=== PATIENT | male | born 1960 | race Caucasian/White ===

== ENCOUNTER 2020-11-07 12:42 | Inpatient (IN) | payer MEDICARE, MEDICAID, SELFPAY ==
--- NOTE | ~2020-11-07 | XR_ITS ---
EXAMINATION: LUMBAR SPINE AND RIGHT HIP CLINICAL INFORMATION: Question of osteomyelitis COMPARISON: None TECHNIQUE: 3 views lumbar spine, single view pelvis with 2 additional views right hip. FINDINGS: Right hip: The distal end of the nephroureteral catheter on the left is present. Some mild degenerative changes are present in the right hip with some supra-acetabular sclerosis and some osteophytes. No bony destructive lesion is seen to suggest osteomyelitis. Lumbar spine: Degenerative changes are present in the lumbar spine with large osteophytes at L1 and L2 and lesser spondylitic changes at L3-S1. There is a scoliosis convex to the right. No gross bony destructive lesions are seen to suggest osteomyelitis. The vas deferens are calcified. XR/XR lumbar spine 2-3V IMPRESSION: Degenerative changes in the right hip and spine. Would highly recommend MRI if osteomyelitis is a consideration. Left-sided nephroureteral catheter incidentally noted.
--- NOTE | ~2020-11-07 | US_ITS ---
EXAMINATION: US RETROPERITONEAL LIMITED (RENAL ONLY) CLINICAL INFORMATION: Acute kidney insufficiency. History of left renal obstruction and stent.. COMPARISON: Lumbar spine films dated 11/07/2020. TECHNIQUE: Ultrasound of the kidneys was performed. FINDINGS: RIGHT KIDNEY: 12.1 x 7.0 x 6.7 cm (SAG x AP x TRV). The kidney is normal in size and contour and mildly increased in echogenicity, suggesting medical renal disease. Renal cortical thickness is normal. No calculi or focal parenchymal lesions. No hydronephrosis. Trace amount of free fluid is seen along the anterior lower pole and interpolar region. LEFT KIDNEY: 11.8 x 5.3 x 6.7 cm (SAG x AP x TRV). The kidney is normal in size and contour and mildly increased in echogenicity, suggesting medical renal disease. Renal cortical thickness is normal. No calculi or focal parenchymal lesions. No hydronephrosis. Trace amount of perinephric fluid is seen in the anterior lower pole region. OTHER: Incidentally noted is an enlarged spleen, measuring 18.9 cm longitudinally. US/US renal BI IMPRESSION: 1. Increased renal cortical echogenicity seen bilaterally, suggesting medical renal disease. 2. No hydronephrosis. 3. Trace bilateral perinephric fluid. 4. Incidental finding of splenomegaly.
--- NOTE | ~2020-11-07 | NM_ITS ---
EXAMINATION: NUCLEAR MEDICINE 3 PHASE BONE SCAN CLINICAL INFORMATION: Left hip and lower lumbar spine pain. Very low GFR unable to perform MRI. COMPARISON: Lumbar spine and right hip exam 11/07/2020 TECHNIQUE: Following intravenous administration of 28 mCi of 99m technetium MDP, a three-phase bone scan of lumbar spine and pelvis was obtained. Blood pool imaging to the lumbar spine left hip were obtained as well. In addition delayed images images were obtained of the pelvis and whole body. FINDINGS: On first phase bone scan there is no abnormal increased perfusion seen to left hip or the lumbar spine. On blood pool images there is no abnormal activity seen in the lumbar spine or the left hip. On third phase bone scan there is mild increased activity seen in the left hip joint and proximal femur. There is focal increased activity seen in right lower thoracic facet joints from T8 through T12 vertebra and left L1-2, bilateral L5-S1 and L4-L5 facet joints. There is no intense activity seen in the lumbar spine to suspect any osteomyelitis. The right hip appears unremarkable. There is mild focal activity in the left knee joint and right midtarsal joints likely arthritic changes. NM/NM bone 3 phase IMPRESSION: Normal first phase and blood pool imaging of lumbar spine and left hip. Normal three-phase bone scan right hip. Abnormal 3 third phase bone scan left hip. This could be secondary to osteoarthritis or or inflammatory arthritis. Mild arthritic changes left knee joint and midtarsal joint right foot. Mild activity in the left proximal femur could be from underlying fracture or contusion. No gross bony abnormality seen on the pelvic x-ray from 11/07/2020.
--- NOTE | ~2020-11-07 | XR_ITS ---
EXAMINATION: LUMBAR SPINE AND RIGHT HIP CLINICAL INFORMATION: Question of osteomyelitis COMPARISON: None TECHNIQUE: 3 views lumbar spine, single view pelvis with 2 additional views right hip. FINDINGS: Right hip: The distal end of the nephroureteral catheter on the left is present. Some mild degenerative changes are present in the right hip with some supra-acetabular sclerosis and some osteophytes. No bony destructive lesion is seen to suggest osteomyelitis. Lumbar spine: Degenerative changes are present in the lumbar spine with large osteophytes at L1 and L2 and lesser spondylitic changes at L3-S1. There is a scoliosis convex to the right. No gross bony destructive lesions are seen to suggest osteomyelitis. The vas deferens are calcified. XR/XR hip RT w PEL1V IMPRESSION: Degenerative changes in the right hip and spine. Would highly recommend MRI if osteomyelitis is a consideration. Left-sided nephroureteral catheter incidentally noted.
[2020-11-07 13:04] VITALS: BP 140/75; PULSE 72; RESP 18; TEMP 36.6; O2SAT 100; BMI 26.6
--- NOTE | 2020-11-07 16:22 | ED.GENADULT ---
HPI - General Adult General Chief complaint: Recheck/Abnormal Lab/Rx Stated complaint: ABN LABS,R FLANK PAIN PER REHAB Time Seen by Provider: 11/07/20 13:50 Source: patient Mode of arrival: ambulatory History of Present Illness HPI narrative: 60-year-old male with a past medical history of ERIS, bacteremia, cirrhosis, DM, osteomyelitis of L1-L5, pyelonephritis, sepsis, and urinary obstruction, BIBA from [facility] c/o continued low back pain radiating to right hip/thigh since osteomyelitis diagnosis x 6 weeks. Per facility has been persistently refusing care/to participate in rehab and his lactulose, thus arrangements were made for patient to go to SNF today which he refused and was transferred to hospital. Patient adamantly requesting MRI. Denies fever, chills, numbness, tingling, urinary incontinence/retention, abdominal pain, CP/SOB Patient with extensive hospitalization from August 21 to October 17 at [facility] then [facility] then [facility] for severe sepsis with pyelonephritis and urinary obstruction requiring HD and percutaneous nephrostomy tube, then developed secondary bacteremia. MRI of the spine on September 21 showed osteomyelitis and diskitis with epidural and paraspinal phlegmon at L1, L2, L4 and L5, patient was transferred [facility] for neurosurgical evaluation who deemed no surgical intervention needed. Subsequently patient was transferred to [facility], then later to [facility] for rehab & finished IV Ceftriaxone and Ampicillin on November 04 for osteomyelitis tx. Onset (ago): week(s) Related Data Home Medications Medication Instructions Recorded Confirmed B complex with C 20-folic acid 1 cap PO DAILY 11/07/20 11/07/20 [Nephrocaps] Saccharomyces boulardii [Florastor] 1 cap PO BID 11/07/20 11/07/20 acetaminophen 650 mg PO Q6H PRN 11/07/20 11/07/20 carvedilol 1 tab PO BID 11/07/20 11/07/20 folic acid 1 tab PO DAILY 11/07/20 11/07/20 furosemide 1 tab PO DAILY 11/07/20 11/07/20 gabapentin 300 mg PO BEDTIME 11/07/20 11/07/20 heparin (porcine) 5,000 unit SUBCUT Q12H 11/07/20 11/07/20 insulin glargine [Lantus Solostar 15 unit SUBCUT BEDTIME 11/07/20 11/07/20 U-100 Insulin] insulin lispro 0 unit SUBCUT QIDACHS 11/07/20 11/07/20 lactulose 30 g PO QID 11/07/20 11/07/20 lidocaine [Lidoderm] 1 patch TOPICAL DAILY 11/07/20 11/07/20 melatonin 1 tab PO BEDTIME PRN 11/07/20 11/07/20 morphine 7.5 mg PO Q4H PRN 11/07/20 11/07/20 morphine 15 mg PO Q4H PRN 11/07/20 11/07/20 pyridoxine (vitamin B6) 50 mg PO DAILY 11/07/20 11/07/20 rifaximin 550 mg PO BID 11/07/20 11/07/20 sodium bicarbonate 1 tab PO BID 11/07/20 11/07/20 thiamine mononitrate (vit B1) 2 tab PO DAILY 11/07/20 11/07/20 [Vitamin B-1 (mononitrate)] tizanidine 8 mg PO Q8H 11/07/20 11/07/20 trazodone 50 mg PO BEDTIME 11/07/20 11/07/20 Allergies Allergy/AdvReac Type Severity Reaction Status Date / Time tree nut Allergy Dry Mucus Verified 11/07/20 13:12 Membranes Review of Systems Review of Systems: Constitutional: No Fever, No Chills, No Night Sweats Cardiovascular: No Chest Pain, No SOB Respiratory: No Cough, No Dyspnea Gastrointestinal: No Nausea, No Vomiting, No Diarrhea, No Constipation, No Abdominal pain Genitourinary: No Dysuria, No Hematuria, No Urinary Incontinence, No Flank Pain, No Urinary Flow Changes Musculoskeletal: + joint pain, + Myalgias, No Joint Swelling Skin: No Skin Lesions, No rash Neuro: No Weakness, No Numbness, No Paresthesias Yes all other systems are reviewed and are negative [facility] Past Medical History Attestation statement: The following information was validated with the patient. Medical History (Updated 11/07/20 @ 13:10 by Sheela Peterson) ERIS (acute kidney injury) Bacteremia Cirrhosis of liver Diabetes Osteomyelitis Pyelonephritis Sepsis Urinary obstruction Surgical History (Updated 11/07/20 @ 13:11 by Sheela Peterson) S/P TIPS (transjugular intrahepatic portosystemic shunt) Social History Social History Alcohol intake: unknown Smoking Status: Unknown if ever smoked Use of substances other than those prescribed or required for medical reasons: Unknown Advance Directives: Yes Advance Directives Information Provided: No Advance Directives on File: Yes Advance Directives Date on File: 11/07/20 Physical Exam Vital Signs: Vital Signs: Last Vital Signs Temp 97.8 F 11/07/20 13:04 Pulse 72 11/07/20 13:04 Resp 18 11/07/20 13:04 BP 140/75 H 11/07/20 13:04 Pulse Ox 100 11/07/20 13:04 Body Mass Index 26.6 Const: General: cooperative and comfortable Orientation/consciousness: patient oriented x3 Limitations: no limitations HENMT: Head: Yes normal to inspection Ears: hearing grossly normal bilaterally General nose exam: Normal external nose present Face and sinus: Yes normal facial exam Eyes: General: appearance normal, both eyes and all related structures EOM: EOMs intact bilaterally Neck: Neck: Yes normal visual inspection Resp: Effort & Inspection: normal respiratory effort Auscultation: clear to auscultation bilaterally Cardio: Rate: regular rate Heart sounds: S1 normal heart sound present and S2 normal heart sound present Peripheral pulses: dorsalis pedis present GI: Inspection: Yes normal to inspection Palpation (GI): Soft to palpation, nontender, no guarding and not rigid : Other: Nephrostomy tube present to left flank General: Yes no CVA tenderness Back/Spine/Pelvis: Other: No midline spinous tenderness or step-offs/deformity/cellulitis present Back: no CVA tenderness Skin: Rashes: no rashes Wounds: no wounds Neuro: Other: Chronic RLE weakness secondary to polio as a child General: patient oriented x3, tone normal, moves all extremities and no focal motor deficits Extrem: General: Yes normal to inspection Course Course Course Narrative: -H&H at patient's baseline -ESR elevated at 107, CRP elevated at 5 (per notes CRP was 26.1 upon discharge from [facility]) -BUN/creatinine 87/4.57 today (87/4.34 on 11/05), ammonia 105 worsening from 91 on 11/03 > likely from patients noncompliance /refusal to take lactulose > no evidence of hepatic encephalopathy at this time he is A&O x3, mentating appropriately. Agreeable to take lactulose now in the ED >> per notes from [facility] patient was complaining of right hip pain and this being a component of osteo since hospital stay, was not believed to be active infection. Unlikely active/new osteomyelitis as patient just finished course of IV antibiotics. Has no elevated WBC count, afebrile, ESR/CRP improving. XR hip RT w PEL1V IMPRESSION: Degenerative changes in the right hip and spine. Would highly recommend MRI if osteomyelitis is a consideration. Left-sided nephroureteral catheter incidentally noted. >> still low concern for acute osteomyelitis but due to radiologist recommendation will obtain MRI to rule out osteo -2100--ED care transferred to [facility] pending MRI, PT evaluation, and likely STR tomorrow Medical Decision Making MDM Narrative Medical decision making narrative: 60-year-old male with a past medical history of ERIS, bacteremia, cirrhosis, DM, osteomyelitis of L1-L5, pyelonephritis, sepsis, and urinary obstruction, BIBA from [facility] c/o continued low back pain radiating to right hip/thigh since osteomyelitis diagnosis x 6 weeks. On exam VSS, NAD/well-appearing, physical exam as above. Likely acute on chronic pain from prior osteomyelitis. R/o metabolic/infectious etiology including encephalopathy due to patient's noncompliance with lactulose. Patient just finished treatment for osteomyelitis, although there is ?concern infection spread, will 1st check labs Low concern for severe sepsis Plan: Labs Lab Data Result diagrams: 11/07/20 16:59 11/07/20 16:59 Labs: Lab Results 11/07/20 11/07/20 11/07/20 Range/Units 16:58 16:59 16:59 WBC 4.8 (4.8-10.8) X10*3/uL RBC 2.66 L (4.60-5.80) X10*6/uL Hgb 8.3 L (14.0-18.0) g/dl Hct 23.5 L (42-52) % MCV 88.3 (80-98) fL MCH 31.2 (27.0-33.0) pg MCHC 35.3 (31.0-36.0) g/dl RDW 14.6 (11.0-16.0) % Plt Count 149 L (160-400) X10*3/uL MPV 8.6 L (9.4-12.4) fL Immature Gran % (Auto) 0.6 H (0.0-0.4) % Neut % (Auto) 76.4 H (45-73) % Lymph % (Auto) 9.5 L (20-40) % Ceiba % (Auto) 9.1 (2-11) % Eos % (Auto) 4.4 H (0-4) % Baso % (Auto) 0.0 (0-2) % Lymph # (Auto) 0.5 L (1.2-4.9) X10*3/uL Ceiba # (Auto) 0.4 (0.1-1.2) X10*3/uL Eos # (Auto) 0.2 (0.0-0.4) X10*3/uL Baso # (Auto) 0.0 (0.0-0.2) X10*3/uL Abs Immat Gran (auto) 0.03 (0.00-0.03) X10*3/uL Absolute Neuts (auto) 3.6 (2.0-8.3) X10*3/uL Absolute Nucleated RBC 0.000 (0.0-0.012) X10*3/uL Nucleated RBC % (auto) 0.0 (0.0-0.2) /100WBC Smear Tech's Comments VERIFIED ESR 107 H (0-15) MM/HR PT (10.8-13.0) SEC INR (0.9-1.1) APTT (24.1-38.0) SEC Sodium (135-145) mmol/L Potassium (3.3-5.1) mmol/L Chloride (96-108) mmol/L Carbon Dioxide (22-29) mmol/L Anion Gap (12-20) BUN (9-16) mg/dL Creatinine (0.5-1.4) mg/dL Estim Creat Clear Calc Estimated GFR Random Glucose (60-115) mg/dL Lactic Acid (0.5-2.0) mmol/L Calcium (8.4-10.2) mg/dL Magnesium (1.6-2.6) mg/dL Total Bilirubin (0.0-1.0) mg/dL Direct Bilirubin (0.0-0.5) mg/dL AST (5-37) U/L ALT (0-40) U/L Alkaline Phosphatase (39-117) U/L Ammonia (13-55) umol/L C-Reactive Protein (< or = 0.50) mg/dL Total Protein (6.5-8.0) g/dL Albumin (3.5-5.0) g/dL Lipase (8-78) U/L COVID-19 (STEFFANY) Negative (Negative) COVID-19 Clin Com See Note 11/07/20 11/07/20 11/07/20 Range/Units 16:59 16:59 16:59 WBC (4.8-10.8) X10*3/uL RBC (4.60-5.80) X10*6/uL Hgb (14.0-18.0) g/dl Hct (42-52) % MCV (80-98) fL MCH (27.0-33.0) pg MCHC (31.0-36.0) g/dl RDW (11.0-16.0) % Plt Count (160-400) X10*3/uL MPV (9.4-12.4) fL Immature Gran % (Auto) (0.0-0.4) % Neut % (Auto) (45-73) % Lymph % (Auto) (20-40) % Ceiba % (Auto) (2-11) % Eos % (Auto) (0-4) % Baso % (Auto) (0-2) % Lymph # (Auto) (1.2-4.9) X10*3/uL Ceiba # (Auto) (0.1-1.2) X10*3/uL Eos # (Auto) (0.0-0.4) X10*3/uL Baso # (Auto) (0.0-0.2) X10*3/uL Abs Immat Gran (auto) (0.00-0.03) X10*3/uL Absolute Neuts (auto) (2.0-8.3) X10*3/uL Absolute Nucleated RBC (0.0-0.012) X10*3/uL Nucleated RBC % (auto) (0.0-0.2) /100WBC Smear Tech's Comments ESR (0-15) MM/HR PT 13.6 H (10.8-13.0) SEC INR 1.1 (0.9-1.1) APTT 35.0 (24.1-38.0) SEC Sodium 133 L (135-145) mmol/L Potassium 4.0 (3.3-5.1) mmol/L Chloride 101 (96-108) mmol/L Carbon Dioxide 18 L (22-29) mmol/L Anion Gap 18 (12-20) BUN 87 H* (9-16) mg/dL Creatinine 4.57 H* (0.5-1.4) mg/dL Estim Creat Clear Calc 17.0 Estimated GFR 13 Random Glucose 119 H (60-115) mg/dL Lactic Acid (0.5-2.0) mmol/L Calcium 8.3 L (8.4-10.2) mg/dL Magnesium 2.1 (1.6-2.6) mg/dL Total Bilirubin 1.1 H (0.0-1.0) mg/dL Direct Bilirubin 0.5 (0.0-0.5) mg/dL AST 22 (5-37) U/L ALT 16 (0-40) U/L Alkaline Phosphatase 132 H (39-117) U/L Ammonia 105 H (13-55) umol/L C-Reactive Protein 5.00 H (< or = 0.50) mg/dL Total Protein 7.6 (6.5-8.0) g/dL Albumin 3.4 L (3.5-5.0) g/dL Lipase (8-78) U/L COVID-19 (STEFFANY) (Negative) COVID-19 Clin Com 11/07/20 11/07/20 Range/Units 16:59 16:59 WBC (4.8-10.8) X10*3/uL RBC (4.60-5.80) X10*6/uL Hgb (14.0-18.0) g/dl Hct (42-52) % MCV (80-98) fL MCH (27.0-33.0) pg MCHC (31.0-36.0) g/dl RDW (11.0-16.0) % Plt Count (160-400) X10*3/uL MPV (9.4-12.4) fL Immature Gran % (Auto) (0.0-0.4) % Neut % (Auto) (45-73) % Lymph % (Auto) (20-40) % Ceiba % (Auto) (2-11) % Eos % (Auto) (0-4) % Baso % (Auto) (0-2) % Lymph # (Auto) (1.2-4.9) X10*3/uL Ceiba # (Auto) (0.1-1.2) X10*3/uL Eos # (Auto) (0.0-0.4) X10*3/uL Baso # (Auto) (0.0-0.2) X10*3/uL Abs Immat Gran (auto) (0.00-0.03) X10*3/uL Absolute Neuts (auto) (2.0-8.3) X10*3/uL Absolute Nucleated RBC (0.0-0.012) X10*3/uL Nucleated RBC % (auto) (0.0-0.2) /100WBC Smear Tech's Comments ESR (0-15) MM/HR PT (10.8-13.0) SEC INR (0.9-1.1) APTT (24.1-38.0) SEC Sodium (135-145) mmol/L Potassium (3.3-5.1) mmol/L Chloride (96-108) mmol/L Carbon Dioxide (22-29) mmol/L Anion Gap (12-20) BUN (9-16) mg/dL Creatinine (0.5-1.4) mg/dL Estim Creat Clear Calc Estimated GFR Random Glucose (60-115) mg/dL Lactic Acid 0.6 (0.5-2.0) mmol/L Calcium (8.4-10.2) mg/dL Magnesium (1.6-2.6) mg/dL Total Bilirubin (0.0-1.0) mg/dL Direct Bilirubin (0.0-0.5) mg/dL AST (5-37) U/L ALT (0-40) U/L Alkaline Phosphatase (39-117) U/L Ammonia (13-55) umol/L C-Reactive Protein (< or = 0.50) mg/dL Total Protein (6.5-8.0) g/dL Albumin (3.5-5.0) g/dL Lipase 10 (8-78) U/L COVID-19 ([facility]FFANY) (Negative) COVID-19 Clin Com Discharge Plan Discharge Prescriptions: No Action furosemide 40 mg tablet 1 tab PO DAILY RF: 0 carvedilol 6.25 mg tablet 1 tab PO BID RF: 0 melatonin 3 mg tablet 1 tab PO BEDTIME PRN (Reason: Insomnia) RF: 0 sodium bicarbonate 650 mg tablet 1 tab PO BID RF: 0 folic acid 1 mg tablet 1 tab PO DAILY RF: 0 insulin lispro 100 unit/mL insulin pen 0 unit subcut QIDACHS RF: 0 Saccharomyces boulardii [Florastor] 250 mg capsule 1 cap PO BID RF: 0 lactulose 10 gram/15 mL solution 30 g PO QID RF: 0 Lantus Solostar U-100 Insulin 100 unit/mL (3 mL) insulin pen 15 unit subcut BEDTIME RF: 0 thiamine mononitrate (vit B1) [Vitamin B-1 (mononitrate)] 100 mg tablet 2 tab PO DAILY RF: 0 acetaminophen 325 mg Tablet 650 mg PO Q6H PRN (Reason: Pain) RF: 0 tizanidine 4 mg Tablet 8 mg PO Q8H RF: 0 lidocaine [Lidoderm] 5 % Adhesive Patch,Medicated 1 patch TOPICAL DAILY RF: 0 pyridoxine (vitamin B6) 50 mg Tablet 50 mg PO DAILY RF: 0 gabapentin 100 mg Capsule 300 mg PO BEDTIME RF: 0 heparin (porcine) 5,000 unit/mL Solution 5,000 unit SUBCUT Q12H RF: 0 rifaximin 550 mg Tablet 550 mg PO BID RF: 0 Nephrocaps 1 mg Capsule 1 cap PO DAILY RF: 0 trazodone 50 mg Tablet 50 mg PO BEDTIME RF: 0 morphine 15 mg Tablet 15 mg PO Q4H PRN (Reason: Pain (Scale Score 7-10)) RF: 0 morphine 15 mg Tablet 7.5 mg PO Q4H PRN (Reason: Pain (Scale Score 4-6)) RF: 0
[2020-11-07 17:20] LABS: Eosinophils Absolute Auto 0.2 X10*3/uL (0.0-0.4); Eosinophils Percent Auto 4.4 % (0-4); Hematocrit 23.5 % (42-52); Hemoglobin 8.3 g/dl (14.0-18.0); Imm Gran Abs Auto 0.03 X10*3/uL (0.00-0.03); Imm Gran Pct Auto 0.6 % (0.0-0.4); Lymphocytes Absolute Auto 0.5 X10*3/uL (1.2-4.9); Lymphocytes Percent Auto 9.5 % (20-40); MANUAL DIFF FLAG SCAN; Mean Corpuscular HGB Conc 35.3 g/dl (31.0-36.0); Mean Corpuscular Hemoglobin 31.2 pg (27.0-33.0); Mean Corpuscular Volume 88.3 fL (80-98); Mean Platelet Volume 8.6 fL (9.4-12.4); Monocytes Absolute Auto 0.4 X10*3/uL (0.1-1.2); Monocytes Percent Auto 9.1 % (2-11); Neutrophils Absolute Auto 3.6 X10*3/uL (2.0-8.3); Neutrophils Percent Auto 76.4 % (45-73); Platelet Count 149 X10*3/uL (160-400); Red Blood Count 2.66 X10*6/uL (4.60-5.80); Red Cell Distribution Width 14.6 % (11.0-16.0); SCAN SMEAR FLAG 1; White Blood Count 4.8 X10*3/uL (4.8-10.8)
[2020-11-07 17:24] LABS: INTERNATIONAL NORM RATIO 1.1 (0.9-1.1); Prothrombin Time 13.6 SEC (10.8-13.0)
[2020-11-07 17:47] LABS: COVID-19 Test Negative (Negative)
[2020-11-07 17:49] LABS: SLIDE REVIEW VERIFIED
[2020-11-07 18:00] LABS: Ammonia 105 umol/L (13-55)
[2020-11-07 18:04] LABS: Lactic Acid 0.6 mmol/L (0.5-2.0)
[2020-11-07 18:07] LABS: Lipase 10 U/L (8-78)
[2020-11-07 18:15] LABS: Alanine Aminotransferase 16 U/L (0-40); Albumin Level 3.4 g/dL (3.5-5.0); Alkaline Phosphatase 132 U/L (39-117); Anion Gap 18 (12-20); Aspartate Amino Transferase 22 U/L (5-37); Bilirubin Direct 0.5 mg/dL (0.0-0.5); Bilirubin Total 1.1 mg/dL (0.0-1.0); Blood Urea Nitrogen 87 mg/dL (9-16); Calcium 8.3 mg/dL (8.4-10.2); Carbon Dioxide 18 mmol/L (22-29); Chloride 101 mmol/L (96-108); Estimated Glomerular Filt Rate 13; Glucose Random 119 mg/dL (60-115); Magnesium 2.1 mg/dL (1.6-2.6); Sodium 133 mmol/L (135-145); Total Protein 7.6 g/dL (6.5-8.0)
[2020-11-07 18:26] LABS: Erythrocyte Sedimentation Rate 107 MM/HR (0-15)
[2020-11-07] MEDS: Lactulose 20 GM/30 ML SOLUTION PO (21:00)
--- NOTE | 2020-11-07 22:33 | MHC.CM.ED ---
met with pt and ex-, Ese Murillo, ([phone]). who is here for support, not to provide care for him. Pt lives in [facility] and was here on business. Living at [facility] in [place].Ese arrived her from out of [facility] for support. Pt had long recent medical hx with hospitalization from 08/21-10/17. Severe sepsis withpyelo, bacteremia and osteomyelitis in lumbar area. Completed antibiotics on 11/04. Also has hx of cirrhosis. Was at [facility] for acute rehab. Was d/c today to [facility] because we wasn't participating in rehab. Pt demanded to come to hospital for MRI instead of rehab. Has a bed at [facility]. Pt refuses to go to [facility]. May go to another SNF if his pain improves, but will not go to [place]. States people aren't listening to him. Will have MRI tomorrow of hip, spine and pelivs and a PT evaluation. Ese tells that when pt doesn't take his lactulose, his ammonia levels rise and he becomes confused. [facility] states his sibling will help him, but they live on the [facility]. Placed additional referrals locally in [facility], but did not cancel [place] yet in case he changes his mind. HCP obtained from [facility] on his on file at [facility]. HCP/Sister Elba Saba ([phone]). Elba lives in [facility]. CM will follow for d/c needs.
[2020-11-07 23:05] VITALS: BP 163/82; PULSE 93; RESP 18; TEMP 36.7; O2SAT 99
[2020-11-07 23:24] LABS: Glucose Urine UA 100 MG/DL (NEG); Leukocyte Esterase Urine 3+ (NEG); Nitrite Urine NEG (NEG); PH 5.5 (5.0-8.0); Specific Gravity - Urine 1.015 (1.005-1.025); UACC Culture Trigger YES; Urine Blood 3+ (NEG); Urine Ketones NEG (NEG); Urine Protein 1+ MG/DL (NEG-TRACE)
[2020-11-07 23:33] LABS: Appearance Urine HAZY; Color Urine STRAW
[2020-11-08] VITALS: BP 164/83; PULSE 93; RESP 18; TEMP 36.7; O2SAT 99
[2020-11-08] LABS: Mucus Urine TRACE /LPF; RBC Urine 50-75 /HPF (0); Squamous Epithelial Cell Urine TRACE /LPF; WBC Clumps Urine NOTED
--- NOTE | 2020-11-08 01:38 | PC.NURSE ---
patient needs pt evaluation in the morning. Case management has a rehab that has accepted the patient. However, patient has stated that he does not want to go to that particular rehab as he has heard awful things about it. Patient is from [facility] and came here on business back in July and got sick and has spent that last couple of months in various hospitals in the area. Currently patient is staying at a hotel in the area. Case management to follow up in the AM after patient is seen by pt.
[2020-11-08 02:00] VITALS: BP 157/58; PULSE 90; RESP 15; O2SAT 99
[2020-11-08 07:28] LABS: Glucose, Whole Blood 365 mg/dL (60-115)
[2020-11-08] MEDS: TiZANidine HCL 4 MG TABLET 8 MG PO ×2 (07:30→16:10)
[2020-11-08] MEDS: Heparin Sodium,Porcine 5,000 UNIT/ML VIAL 5000 UNIT SUBCUT ×2 (07:31→19:42)
[2020-11-08] MEDS: Insulin Lispro 100 UNIT/ML 3 ML VIAL SUBCUT (07:31)
--- NOTE | 2020-11-08 07:36 | PC.NURSE ---
report taken from aly meyer pt sitting up in stretcher, alert and oriented. sts awaiting mri. radiologist suggesting bone scan d/t increased gfr for pt and poor eval from dry mri. bone scan ordered. pt ate breakfast, medicated per emar. wctm.
--- NOTE | 2020-11-08 08:34 | MHC.CM.ED ---
Patient remains in ER. MRI and PT are pending. Continue to monitor for d/c needs.
[2020-11-08] MEDS: Sodium Bicarbonate 650 MG TABLET PO (09:50)
[2020-11-08] MEDS: carvediloL 6.25 MG TABLET PO (09:50)
[2020-11-08] MEDS: Lidocaine 4 % Patch ADH..PATCH 1 PATCH TRANSDERMA (09:50)
[2020-11-08] MEDS: Folic Acid 1 MG TABLET PO (09:50)
[2020-11-08] MEDS: Lactulose 20 GM/30 ML SOLUTION 30 GM PO ×2 (09:51→16:11)
[2020-11-08] MEDS: Thiamine HCL 100 MG TABLET 200 MG PO (09:51)
[2020-11-08] MEDS: Pyridoxine HCl (Vitamin B6) 50 MG TABLET PO (09:51)
[2020-11-08] MEDS: rifAXIMin 550 MG TABLET PO (09:51)
[2020-11-08] MEDS: Furosemide 40 MG TABLET PO (09:51)
--- NOTE | 2020-11-08 10:12 | PC.NURSE ---
took morning meds, awaiting nm scan. win.
--- NOTE | 2020-11-08 13:19 | PC.NURSE ---
PT OFF UNIT TO NUCLEAR MED AT [id number]
[2020-11-08 15:06] LABS: Glucose, Whole Blood 118 mg/dL (60-115)
--- NOTE | 2020-11-08 19:08 | MHC.CM.ED ---
Attempted to meet with pt. to discuss plan of care. Pt continually falling asleep in mid sentence. Unable to carry on conversation. Ex- Ese present. Explained that CM would speak to provider regarding pt unable to stay awake. Dr. Woodward aware and will order antibiotics for ?UTI and will re-order labs. Pt and ex- aware that PT will need to evaluate patient in the am. Pt ex- also concerned about his pain level and what the plan will be. Enc her to speak to provider and PCP Dr. Perry about pain management. Explained that narcotics are not the preferred route. Pt continually falling asleep mid-sentence. CM will continue to follow for d/c needs.
[2020-11-08 19:18] VITALS: BP 98/53; PULSE 56; RESP 18; O2SAT 99
[2020-11-08] MEDS: cefTRIAXone sodium 1 GM in 0.9 % Sodium Chloride 50 ML IV (19:42)
[2020-11-08] MEDS: 0.9 % Sodium Chloride 1,000 ML 999 ML IVCONT (19:42)
[2020-11-08 19:44] LABS: Eosinophils Absolute Auto 0.2 X10*3/uL (0.0-0.4); Eosinophils Percent Auto 4.7 % (0-4); Hemoglobin 7.1 g/dl (14.0-18.0); Imm Gran Abs Auto 0.01 X10*3/uL (0.00-0.03); Imm Gran Pct Auto 0.3 % (0.0-0.4); Lymphocytes Absolute Auto 0.5 X10*3/uL (1.2-4.9); Lymphocytes Percent Auto 11.9 % (20-40); MANUAL DIFF FLAG SCAN; Mean Corpuscular HGB Conc 35.9 g/dl (31.0-36.0); Mean Corpuscular Hemoglobin 31.4 pg (27.0-33.0); Mean Corpuscular Volume 87.6 fL (80-98); Mean Platelet Volume 8.3 fL (9.4-12.4); Monocytes Absolute Auto 0.4 X10*3/uL (0.1-1.2); Monocytes Percent Auto 11.4 % (2-11); Neutrophils Absolute Auto 2.8 X10*3/uL (2.0-8.3); Neutrophils Percent Auto 71.7 % (45-73); Platelet Count 132 X10*3/uL (160-400); Red Blood Count 2.26 X10*6/uL (4.60-5.80); Red Cell Distribution Width 14.6 % (11.0-16.0); SCAN SMEAR FLAG 1; White Blood Count 3.9 X10*3/uL (4.8-10.8)
[2020-11-08 19:51] LABS: Ammonia 109 umol/L (13-55)
[2020-11-08 19:55] LABS: Hematocrit 19.8 % (42-52)
[2020-11-08 20:06] LABS: SLIDE REVIEW VERIFIED
[2020-11-08 20:21] LABS: Anion Gap 16 (12-20); Blood Urea Nitrogen 84 mg/dL (9-16); Carbon Dioxide 19 mmol/L (22-29); Chloride 101 mmol/L (96-108); Creatinine Clr Calc Pharmacy 17.3; Estimated Glomerular Filt Rate 14; Glucose Random 225 mg/dL (60-115); Potassium 4.3 mmol/L (3.3-5.1); Sodium 132 mmol/L (135-145)
[2020-11-08 20:43] LABS: OBS1 NEG (NEG)
[2020-11-08 20:44] LABS: OBS Int Ctl Valid YES
--- NOTE | 2020-11-08 21:13 | PM.IMHP ---
History of Present Illness Date of Service: 11/08/20 Chief Complaint: back pain, altered mental status This is a 60-year-old male with past medical history of liver cirrhosis, diabetes, osteomyelitis of the back, pyelonephritis, status post TIPS, ERIS and bacteremia who was recently discharged from [facility] after being managed for osteomyelitis of the spine and was on an extensive course of antibiotics at the senior living sent from the senior living for complaints of back pain as well as altered mentation. Patient is sleeping, lethargic, waxing and waning and therefore history was obtained mostly from ED physician. It appears the patient was recently treated with an extensive course of antibiotic for osteomyelitis of vertebral spine, and was sent to senior living. Patient was complaining of back pain at the senior living and therefore was sent to the ED for concern of recurrent osteomyelitis. According to his girlfriend patient is also more altered and lethargic. According to documentation patient had a hospitalization from August 21 to October 17 at [facility] then [facility] then at [facility] for severe sepsis with pyelonephritis and urinary obstruction requiring hemodialysis and percutaneous nephrostomy tube, then developed secondary bacteremia. MRI of the spine done on September 21 showed osteomyelitis and diskitis with epidural and paraspinal phlegmon at L1 and L2-L4 and L5. Patient did not require any surgical intervention. Patient finished IV ceftriaxone and penicillin on November 04 for osteomyelitis treatment at the senior living. Patient hemodynamically stable with no significant abnormal vitals Labs are significant for WBC count of 3.9, hemoglobin of 7.1 with a negative stool occult blood, hematocrit of 19.8, platelet count of 132, sodium of 132, BUN of 84 with a creatinine of 4.5, ammonia of 106 worsened to 109 and repeat UA is positive for leukocyte Estrace and WBC Past medical history as per EMR as patient too lethargic to answer questions Review of Systems Review of Systems: Yes all other systems are reviewed and are negative [facility] Medical History (Updated 11/09/20 @ 06:14 by Trish Varghese MD) ERIS (acute kidney injury) Bacteremia Cirrhosis of liver Diabetes Osteomyelitis Pyelonephritis Sepsis Urinary obstruction Surgical History S/P TIPS (transjugular intrahepatic portosystemic shunt) Social History Household Members: None Housing: Other Housing Other:: hotels Do you presently have visiting nurse or other home services: Yes Alcohol intake: unknown Smoking Status: Smoker, status unknown Tobacco Type: Cigar Smoked in Last 30 Days: No Patient Interested in Nicotine Replacement: No Patient Given Instructions on How to Stop Smoking: No Second Hand Smoke Exposure: No Use of substances other than those prescribed or required for medical reasons: Yes Substance Use Type: Marijuana Substance Use Frequency: Occasionally Last Used Substance: Weeks (ago) Currently Displaying Signs/Symptoms of Drug Intoxication Withdrawal: No Any prior treatment program specific to substance use: No Have you been hit, kicked, punched, or otherwise hurt by someone within the past year? If so, by whom?: No Do you feel safe in your current relationship?: No Current Relationship Is there a partner from a previous relationship who is making you feel unsafe now?: No Are you made to feel afraid or neglected: No Advance Directives: Yes Advance Directives Information Provided: No Advance Directives on File: Yes Advance Directives Date on File: 11/07/20 Do you have thoughts of harming others: None Do you have a plan to hurt others: No Plan Recently lost weight without trying: No Meds Allergies Allergy/AdvReac Type Severity Reaction Status Date / Time tree nut Allergy Dry Mucus Verified 11/07/20 13:12 Membranes Active Medications: Current Medications Generic Name Dose Route Start Last Admin Trade Name Freq PRN Reason Stop Dose Admin Acetaminophen 650 mg 11/08/20 05:09 Acetaminophen 325 Mg Tablet PO Q6H PRN Pain Carvedilol 6.25 mg 11/08/20 09:00 11/08/20 09:50 Carvedilol 6.25 Mg Tablet PO 6.25 mg BID DANIS Administration Protocol Folic Acid 1 mg 11/08/20 09:00 11/08/20 09:50 Folic Acid 1 Mg Tablet PO 1 mg DAILY DANIS Administration Furosemide 40 mg 11/08/20 09:00 11/08/20 09:51 Furosemide 40 Mg Tablet PO 40 mg DAILY DANIS Administration Protocol Gabapentin 300 mg 11/08/20 21:00 Gabapentin 100 Mg Capsule PO BEDTIME DANIS Heparin Sodium (Porcine) 5,000 unit 11/08/20 07:00 11/08/20 19:42 Heparin Sodium,Porcine 5,000 Unit/Ml Vial SUBCUT 5,000 unit Q12H DANIS Administration Insulin Glargine 15 unit 11/08/20 21:00 Insulin Glargine,Hum.Rec.Anlog 100 Unit/Ml 10 Ml Vial SUBCUT BEDTIME [facility] Insulin Human Lispro 0 unit 11/08/20 07:30 11/08/20 19:46 Insulin Lispro 100 Unit/Ml 3 Ml Vial SUBCUT Not Given QIDACHS [facility] Protocol Lactulose 30 gm 11/08/20 09:00 11/08/20 16:11 Lactulose 20 Gm/30 Ml Solution PO 30 gm QID DANIS Administration Lidocaine 1 patch 11/08/20 09:00 11/08/20 09:50 Lidocaine 4 % Patch Adh..Patch TRANSDERMA 1 patch DAILY [facility] Administration Melatonin 3 mg 11/08/20 05:09 Melatonin 3 Mg Tablet PO BEDTIME PRN Insomnia Morphine Sulfate 7.5 mg 11/08/20 05:09 Morphine Sulfate Immed Release 15 Mg Tablet PO Q4H PRN Pain (Scale Score 4-6) Morphine Sulfate 15 mg 11/08/20 05:09 Morphine Sulfate Immed Release 15 Mg Tablet PO Q4H PRN Pain (Scale Score 7-10) Non-Formulary Medication 1 cap 11/08/20 09:00 Saccharomyces Boulardii [Florastor] PO BID [facility] Pharmacy Consult 1 each 11/07/20 16:05 Consult Rx Perform Med Rec MISCELLANE ONCE PRN Consult order Pyridoxine HCl 50 mg 11/08/20 09:00 11/08/20 09:51 Pyridoxine Hcl (Vitamin B6) 50 Mg Tablet PO 50 mg DAILY [facility] Administration Rifaximin 550 mg 11/08/20 09:00 11/08/20 09:51 Rifaximin 550 Mg Tablet PO 550 mg BID DANIS Administration Sodium Bicarbonate 650 mg 11/08/20 09:00 11/08/20 09:50 Sodium Bicarbonate 650 Mg Tablet PO 650 mg BID [facility] Administration Thiamine HCl 200 mg 11/08/20 09:00 11/08/20 09:51 Thiamine Hcl 100 Mg Tablet PO 200 mg DAILY DANIS Administration Tizanidine HCl 8 mg 11/08/20 07:00 11/08/20 16:10 Tizanidine Hcl 4 Mg Tablet PO 8 mg Q8H DANIS Administration Trazodone HCl 50 mg 11/08/20 21:00 Trazodone Hcl 50 Mg Tablet PO BEDTIME [facility] Vitamin B Complex/Folic Acid 1 cap 11/08/20 09:00 11/08/20 09:51 B Complex W-C No.20/Folic Acid Capsule PO 1 cap DAILY DANIS Administration Home Medications Medication Instructions Recorded Confirmed Last Taken Type B complex with C 20-folic acid 1 cap PO DAILY 11/07/20 11/07/20 Unknown History [Nephrocaps] Saccharomyces boulardii [Florastor] 1 cap PO BID 11/07/20 11/07/20 Unknown History acetaminophen 650 mg PO Q6H PRN 11/07/20 11/07/20 Unknown History carvedilol 1 tab PO BID 11/07/20 11/07/20 Unknown History folic acid 1 tab PO DAILY 11/07/20 11/07/20 Unknown History furosemide 1 tab PO DAILY 11/07/20 11/07/20 Unknown History gabapentin 300 mg PO BEDTIME 11/07/20 11/07/20 Unknown History heparin (porcine) 5,000 unit SUBCUT Q12H 11/07/20 11/07/20 Unknown History insulin glargine [Lantus Solostar 15 unit SUBCUT BEDTIME 11/07/20 11/07/20 Unknown History U-100 Insulin] insulin lispro 0 unit SUBCUT QIDACHS 11/07/20 11/07/20 Unknown History lactulose 30 g PO QID 11/07/20 11/07/20 Unknown History lidocaine [Lidoderm] 1 patch TOPICAL DAILY 11/07/20 11/07/20 Unknown History melatonin 1 tab PO BEDTIME PRN 11/07/20 11/07/20 Unknown History morphine 7.5 mg PO Q4H PRN 11/07/20 11/07/20 Unknown History morphine 15 mg PO Q4H PRN 11/07/20 11/07/20 Unknown History pyridoxine (vitamin B6) 50 mg PO DAILY 11/07/20 11/07/20 Unknown History rifaximin 550 mg PO BID 11/07/20 11/07/20 Unknown History sodium bicarbonate 1 tab PO BID 11/07/20 11/07/20 Unknown History thiamine mononitrate (vit B1) 2 tab PO DAILY 11/07/20 11/07/20 Unknown History [Vitamin B-1 (mononitrate)] tizanidine 8 mg PO Q8H 11/07/20 11/07/20 Unknown History trazodone 50 mg PO BEDTIME 11/07/20 11/07/20 Unknown History Physical Exam Vital Signs and Narrative: Vital Signs: Last Vital Signs Temp 98.1 F 11/08/20 00:00 Pulse 56 11/08/20 19:18 Resp 18 11/08/20 19:18 BP 98/53 L 11/08/20 19:18 Pulse Ox 99 11/08/20 19:18 Body Mass Index 26.6 Const: Other: Somnolent, Arousable but lethargic General: no acute distress Eyes: General: appearance normal, both eyes and all related structures Resp: Effort & Inspection: normal respiratory effort Cardio: Rate: regular rate Rhythm: regular rhythm GI: Palpation (GI): Soft to palpation Auscultation: normal bowel sounds Skin: General skin exam: no rashes or lesions noted Neuro: Cognition (Neuro): normal cognition Extrem: General: Yes normal to inspection and Yes no pedal edema Results Labs CBC and Chem 7: 11/08/20 19:30 11/08/20 19:30 Labs: Laboratory Results - last 24 hr 11/07/20 11/08/20 11/08/20 23:08 07:24 15:00 MCV MCH MCHC RDW Plt Count MPV Immature Gran % (Auto) Neut % (Auto) Lymph % (Auto) [place] % (Auto) Eos % (Auto) Baso % (Auto) Lymph # (Auto) [place] # (Auto) Eos # (Auto) Baso # (Auto) Abs Immat Gran (auto) Absolute Neuts (auto) Absolute Nucleated RBC Nucleated RBC % (auto) Smear Tech's Comments Anion Gap Estim Creat Clear Calc Estimated GFR POC Glucose 365 H* 118 H Random Glucose Calcium Ammonia Urine Color STRAW Urine Appearance HAZY Urine pH 5.5 Ur Specific [place] 1.015 Urine Protein 1+ H Urine Glucose (UA) 100 H Urine Ketones NEG Urine Blood 3+ H Urine Nitrite NEG Ur Leukocyte Esterase 3+ H Urine RBC 50-75 H Urine WBC 15-29 H Urine WBC Clumps NOTED Ur Squamous Epith Cells TRACE Urine Bacteria NONE Urine Mucus TRACE Urine Yeast 1+ Stool Occult Blood 11/08/20 11/08/20 11/08/20 19:30 19:30 19:30 MCV 87.6 MCH 31.4 MCHC 35.9 RDW 14.6 Plt Count 132 L MPV 8.3 L Immature Gran % (Auto) 0.3 Neut % (Auto) 71.7 Lymph % (Auto) 11.9 L [place] % (Auto) 11.4 H Eos % (Auto) 4.7 H Baso % (Auto) 0.0 Lymph # (Auto) 0.5 L [place] # (Auto) 0.4 Eos # (Auto) 0.2 Baso # (Auto) 0.0 Abs Immat Gran (auto) 0.01 Absolute Neuts (auto) 2.8 Absolute Nucleated RBC 0.000 Nucleated RBC % (auto) 0.0 Smear Tech's Comments VERIFIED Anion Gap 16 Estim Creat Clear Calc 17.3 Estimated GFR 14 POC Glucose Random Glucose 225 H D Calcium 8.0 L Ammonia 109 H Urine Color Urine Appearance Urine pH Ur Specific [place] Urine Protein Urine Glucose (UA) Urine Ketones Urine Blood Urine Nitrite Ur Leukocyte Esterase Urine RBC Urine WBC Urine WBC Clumps Ur Squamous Epith Cells Urine Bacteria Urine Mucus Urine Yeast Stool Occult Blood 11/08/20 20:26 MCV MCH MCHC RDW Plt Count MPV Immature Gran % (Auto) Neut % (Auto) Lymph % (Auto) [place] % (Auto) Eos % (Auto) Baso % (Auto) Lymph # (Auto) [place] # (Auto) Eos # (Auto) Baso # (Auto) Abs Immat Gran (auto) Absolute Neuts (auto) Absolute Nucleated RBC Nucleated RBC % (auto) Smear Tech's Comments Anion Gap Estim Creat Clear Calc Estimated GFR POC Glucose Random Glucose Calcium Ammonia Urine Color Urine Appearance Urine pH Ur Specific [place] Urine Protein Urine Glucose (UA) Urine Ketones Urine Blood Urine Nitrite Ur Leukocyte Esterase Urine RBC Urine WBC Urine WBC Clumps Ur Squamous Epith Cells Urine Bacteria Urine Mucus Urine Yeast Stool Occult Blood NEG Imaging Radiologist's Impressions: Impressions Bone Scan Nuclear Medicine 11/08/20 07:18 IMPRESSION: Normal first phase and blood pool imaging of lumbar spine and left hip. Normal three-phase bone scan right hip. Abnormal 3 third phase bone scan left hip. This could be secondary to osteoarthritis or or inflammatory arthritis. Mild arthritic changes left knee joint and midtarsal joint right foot. Mild activity in the left proximal femur could be from underlying fracture or contusion. No gross bony abnormality seen on the pelvic x-ray from 11/07/2020. Assessment and Plan (1) Hepatic encephalopathy: Status: Acute (2) Urinary tract infection: Qualifiers: Urinary tract infection type: acute cystitis Hematuria presence: with hematuria Qualified Code(s): N30.01 - Acute cystitis with hematuria Status: Acute (3) Anemia: Qualifiers: Anemia type: other cause Status: Acute (4) Cirrhosis of liver: Status: Acute 60 yo with pmhx of liver cirrhosis, recent treatment for osteomyelitis of the lumbar spine status post extensive course of antibiotic, admitted for hepatic encephalopathy # hepatic encephalopathy - has elevated ammonia - unclear if he was receiving lactulose at [place] - will start him with lactulose 30 mg t.i.d. with a goal of 3-4 BMs daily - follow mentation # UTI - UA positive - recent history pyelonephritis - will start him on IV ceftriaxone - follow cultures # normocytic anemia - unclear what his baseline his - occult stool blood negative - will obtain ferritin, folic acid, B12 - will also obtain documents from recent hospitalization to compare hemoglobin levels - transfusion threshold of <7 # liver cirrhosis - continue rifaximin - lactulose as above DVT prophylaxis: Heparin subQ
[2020-11-08 21:50] LABS: Glucose, Whole Blood 185 mg/dL (60-115)
[2020-11-08] MEDS: Insulin Glargine,Hum.rec.anlog 100 UNIT/ML 10 ML VIAL 15 UNIT SUBCUT (21:54)
--- NOTE | 2020-11-08 21:56 | PC.NURSE ---
PT SLEEPING S/F IN BED W/ LOUD SONOROUS RESPIRATIONS. PT UNABLE TO WAKE UP FOR EVENING MEDICATIONS, W/ FIRM TACTILE STIMULI PT ABLE TO BARELY OPEN EYES, UNABLE TO WAKE.
[2020-11-08 23:41] VITALS: BP 140/80; PULSE 63; RESP 15; TEMP 36.7; O2SAT 100
[2020-11-08 23:50] LABS: Glucose, Whole Blood 171 mg/dL (60-115)
[2020-11-09] VITALS (7 sets, daily range): BP systolic 116–160; BP diastolic 54–80; PULSE 55–75; RESP 18–20; TEMP 35.8–36.9; O2SAT 99–100
[2020-11-09 00:09] LABS: Creatinine Urine 34.75 mg/dL
--- NOTE | 2020-11-09 01:21 | PC.NURSE ---
Late Entry; pt transfered to [facility] via hospital bed with this RN and an credit review officer with Tele in place. Pt without distress or complaints
[2020-11-09] MEDS: TiZANidine HCL 4 MG TABLET 8 MG PO ×3 (01:52→14:27)
[2020-11-09] MEDS: 0.9 % Sodium Chloride 1,000 ML 100 ML IVCONT ×3 (01:53→20:28)
[2020-11-09] MEDS: 0.9 % Sodium Chloride Flush 3 ML SYRINGE IVFLUSH ×2 (01:59→23:03)
[2020-11-09 03:49] LABS: Ferritin 1608 ng/mL (20-250)
[2020-11-09] MEDS: Heparin Sodium,Porcine 5,000 UNIT/ML VIAL 5000 UNIT SUBCUT ×2 (06:11→18:19)
[2020-11-09 07:04] LABS: Basophils Percent Auto 0.2 % (0-2); Eosinophils Absolute Auto 0.2 X10*3/uL (0.0-0.4); Hematocrit 21.8 % (42-52); Hemoglobin 7.4 g/dl (14.0-18.0); Imm Gran Abs Auto 0.03 X10*3/uL (0.00-0.03); Imm Gran Pct Auto 0.7 % (0.0-0.4); Lymphocytes Absolute Auto 0.4 X10*3/uL (1.2-4.9); Lymphocytes Percent Auto 10.7 % (20-40); MANUAL DIFF FLAG SCAN; Mean Corpuscular HGB Conc 33.9 g/dl (31.0-36.0); Mean Corpuscular Hemoglobin 30.5 pg (27.0-33.0); Mean Corpuscular Volume 89.7 fL (80-98); Mean Platelet Volume 8.6 fL (9.4-12.4); Monocytes Absolute Auto 0.4 X10*3/uL (0.1-1.2); Monocytes Percent Auto 9.2 % (2-11); Neutrophils Percent Auto 75.2 % (45-73); Platelet Count 152 X10*3/uL (160-400); Red Blood Count 2.43 X10*6/uL (4.60-5.80); Red Cell Distribution Width 14.4 % (11.0-16.0); SCAN SMEAR FLAG 1
[2020-11-09 07:14] LABS: Glucose, Whole Blood 122 mg/dL (60-115)
[2020-11-09 07:44] LABS: SLIDE REVIEW VERIFIED
[2020-11-09 08:29] LABS: Anion Gap 16 (12-20); Blood Urea Nitrogen 81 mg/dL (9-16); Carbon Dioxide 21 mmol/L (22-29); Chloride 100 mmol/L (96-108); Creatinine Clr Calc Pharmacy 17.8; Estimated Glomerular Filt Rate 14; Glucose Random 117 mg/dL (60-115); Potassium 4.6 mmol/L (3.3-5.1); Sodium 132 mmol/L (135-145)
[2020-11-09] MEDS: Lactulose 20 GM/30 ML SOLUTION 30 GM PO ×3 (09:55→18:19)
[2020-11-09] MEDS: Pyridoxine HCl (Vitamin B6) 50 MG TABLET PO (09:56)
[2020-11-09] MEDS: Folic Acid 1 MG TABLET PO (09:57)
[2020-11-09] MEDS: Thiamine HCL 100 MG TABLET 200 MG PO (09:57)
[2020-11-09] MEDS: rifAXIMin 550 MG TABLET PO ×2 (09:57→20:23)
[2020-11-09] MEDS: Furosemide 40 MG TABLET PO (09:57)
[2020-11-09] MEDS: Sodium Bicarbonate 650 MG TABLET PO ×2 (09:57→20:24)
[2020-11-09 11:31] LABS: Glucose, Whole Blood 192 mg/dL (60-115)
[2020-11-09] MEDS: Insulin Lispro 100 UNIT/ML 3 ML VIAL SUBCUT ×2 (12:03→20:26)
[2020-11-09 13:29] LABS: Folate > 20.0 ng/mL (> or = 4.0); Vitamin B12 1152 pg/mL (200-900)
--- NOTE | 2020-11-09 13:38 | HO.PM.IMPN ---
Subjective Subjective Date of Service: 11/09/20 Interval History: Patient ambulated with physical therapy this morning, returned to bed denies back discomfort, answering questions appropriately, patient was admitted last night due to altered mental status and back pain. ROS General no headache no dizziness no fever chills. CVS no chest pain, no palpitation. Respiratory no cough, no shortness of breath Gastrointestinal no nausea no vomiting, no abdominal pain Physical Exam Vital Signs: Vital Signs: Last Vital Signs Temp 97.8 F 11/09/20 11:38 Pulse 59 11/09/20 11:38 Resp 20 11/09/20 11:38 BP 140/67 H 11/09/20 11:38 Pulse Ox 99 11/09/20 11:38 Body Mass Index 26.6 General in bed, no acute distress. Neck supple, no JVD. CVS regular rate rhythm, Respiratory lungs clear to auscultation, no respiratory distress, no wheeze, no rhonchi. Gastrointestinal abdomen soft, nontender, bowel sounds audible, no guarding , no rigidity. Extremities no edema. Neuro nonfocal , no confusion awake alert x3, speech clear. Skin no rash Objective Data Current Medications Generic Name Dose Route Start Last Admin Trade Name Freq PRN Reason Stop Dose Admin Acetaminophen 650 mg 11/08/20 05:09 Acetaminophen 325 Mg Tablet PO Q6H PRN Pain Carvedilol 6.25 mg 11/08/20 09:00 11/09/20 09:57 Carvedilol 6.25 Mg Tablet PO Not Given BID DANIS Protocol Docusate Sodium 100 mg 11/09/20 01:04 Docusate Sodium 100 Mg Capsule PO DAILY PRN Constipation Folic Acid 1 mg 11/08/20 09:00 11/09/20 09:57 Folic Acid 1 Mg Tablet PO 1 mg DAILY DANIS Administration Furosemide 40 mg 11/08/20 09:00 11/09/20 09:57 Furosemide 40 Mg Tablet PO 40 mg DAILY DANIS Administration Protocol Gabapentin 300 mg 11/08/20 21:00 11/08/20 21:54 Gabapentin 100 Mg Capsule PO Not Given BEDTIME DANIS Heparin Sodium (Porcine) 5,000 unit 11/08/20 07:00 11/09/20 06:11 Heparin Sodium,Porcine 5,000 Unit/Ml Vial SUBCUT 5,000 unit Q12H DANIS Administration Sodium Chloride 1,000 mls @ 100 mls/hr 11/09/20 01:04 11/09/20 12:04 Ns IVCONT 100 mls/hr .Q10H DANIS Administration Ceftriaxone Sodium 1 gm/ 50 mls @ 100 mls/hr 11/09/20 20:00 Sodium Chloride IV Q24H [facility] Insulin Glargine 15 unit 11/08/20 21:00 11/08/20 21:54 Insulin Glargine,Hum.Rec.Anlog 100 Unit/Ml 10 Ml Vial SUBCUT 15 unit BEDTIME DANIS Administration Insulin Human Lispro 0 unit 11/08/20 07:30 11/09/20 12:03 Insulin Lispro 100 Unit/Ml 3 Ml Vial SUBCUT 2 unit QIDACHS [facility] Administration Protocol Lactulose 30 gm 11/08/20 09:00 11/09/20 09:55 Lactulose 20 Gm/30 Ml Solution PO 30 gm QID DANIS Administration Lidocaine 1 patch 11/08/20 09:00 11/09/20 09:58 Lidocaine 4 % Patch Adh..Patch TRANSDERMA Not Given DAILY [facility] Melatonin 3 mg 11/08/20 05:09 Melatonin 3 Mg Tablet PO BEDTIME PRN Insomnia Morphine Sulfate 7.5 mg 11/08/20 05:09 Morphine Sulfate Immed Release 15 Mg Tablet PO Q4H PRN Pain (Scale Score 4-6) Morphine Sulfate 15 mg 11/08/20 05:09 Morphine Sulfate Immed Release 15 Mg Tablet PO Q4H PRN Pain (Scale Score 7-10) Non-Formulary Medication 1 cap 11/08/20 09:00 Saccharomyces Boulardii [Florastor] PO BID [facility] Ondansetron HCl 4 mg 11/09/20 01:04 Ondansetron Hcl 4 Mg/2 Ml Vial IVPUSH Q8H PRN Nausea and Vomiting Pharmacy Consult 1 each 11/07/20 16:05 Consult Rx Perform Med Rec MISCELLANE ONCE PRN Consult order Pyridoxine HCl 50 mg 11/08/20 09:00 11/09/20 09:56 Pyridoxine Hcl (Vitamin B6) 50 Mg Tablet PO 50 mg DAILY DANIS Administration Rifaximin 550 mg 11/08/20 09:00 11/09/20 09:57 Rifaximin 550 Mg Tablet PO 550 mg BID DANIS Administration Sodium Bicarbonate 650 mg 11/08/20 09:00 11/09/20 09:57 Sodium Bicarbonate 650 Mg Tablet PO 650 mg BID DANIS Administration Sodium Chloride 3 ml 11/09/20 01:04 11/09/20 09:58 0.9 % Sodium Chloride Flush 3 Ml Syringe IVFLUSH Not Given QSHIFT DANIS Thiamine HCl 200 mg 11/08/20 09:00 11/09/20 09:57 Thiamine Hcl 100 Mg Tablet PO 200 mg DAILY DANIS Administration Tizanidine HCl 8 mg 11/08/20 07:00 11/09/20 06:10 Tizanidine Hcl 4 Mg Tablet PO 8 mg Q8H DANIS Administration Trazodone HCl 50 mg 11/08/20 21:00 11/08/20 21:54 Trazodone Hcl 50 Mg Tablet PO Not Given BEDTIME DANIS Vitamin B Complex/Folic Acid 1 cap 11/08/20 09:00 11/09/20 09:56 B Complex W-C No.20/Folic Acid Capsule PO 1 cap DAILY DANIS Administration Labs CBC & Chem 7: 11/09/20 06:10 11/09/20 06:10 Microbiology Microbiology Results: Microbiology 11/07/20 23:06 Urine clean catch - Clean Catch Midstream Urine Culture - Preliminary Yeast 11/07/20 17:07 Blood - Venous Blood Culture - Preliminary No growth after 24 hours. 11/07/20 16:58 Blood - Venous Blood Culture - Preliminary No growth after 24 hours. Assessment and Plan (1) Cirrhosis of liver: Status: Acute (2) Urinary tract infection: Status: Acute (3) Anemia: Status: Acute (4) Hepatic encephalopathy: Status: Acute Assessment and Plan: 60 yo with pmhx of liver cirrhosis, recent treatment for osteomyelitis of the lumbar spine status post extensive course of antibiotic, admitted for hepatic encephalopathy # hepatic encephalopathy Patient admitted with confusion and elevated ammonia level at present patient is awake, alert, no confusion likely has chronically elevated ammonia according to patient he is noncompliant with his lactulose, therefore will continue lactulose t.i.d. with a goal of 2-3 bowel movements per day, follow ammonia level. # UTI UA positive 50-75 RBC leukocyte as straight but no bacteria noted, patient with recent history of sepsis due to pyelonephritis, status post left nephrostomy tube placement due to urinary obstruction also required hemodialysis develop secondary bacteremia and osteomyelitis of his spine status post termite treater helper IV antibiotic treatment Will continue IV ceftriaxone and follow final urine culture, currently urine culture growing yeast greater than 100,000 ,BC x2 showed no growth. # normocytic anemia, hematocrit 21.8, patient asymptomatic with no lightheadedness dizziness or chest pain, occult stool blood negative Elevated ferritin 1608, normal folic acid and B12, seems chronic anemia hold transfusion # Chronic kidney disease with baseline creatinine 4-5 patient will be seen by Dr. Gabriel. # liver cirrhosis continue rifaximin and lactulose # Back pain/right hip pain patient recently underwent treatment for osteomyelitis and diskitis with epidural and paraspinal phlegmon of lumbar spine, patient did not require surgical intervention finish IV ceftriaxone and pencillin on November 04 at senior care, patient offers no complaints of back pain , complaining of right hip pain with ambulation,at present time he is afebrile, no leukocytosis, bone scan showed no evidence of acute disease in back or hips, x-ray of lumbar spine showed degenerative changes in the right hip and spine, no further intervention required. # disposition patient was scheduled for transfer to short-term rehab from acute rehab prior to arrival to [facility] patient seen by Physical therapy today and they are recommending short-term rehab upon discharge for of terminal functional gains DVT prophylaxis: Heparin subQ
--- NOTE | 2020-11-09 14:42 | P.CNID_ITS ---
History of Present Illness Data of Consult Service Date: 11/09/20 Requesting physician: Katrin Ryan Primary Care Provider: Quique Perry MD, DO HPI Reason for consult: possible infection He presents to ER from Rehab because confusion and found to have high ammonia level He had been hospitalized for osteomyelitis L1-L5 and bacteremia [facility] and finished 6 week course of Ceftriaxone and Ampicillin on 11/04 Urine had pyuria but yeast only Blood cultures negative He has chronic ongoing pain in right back and leg area He has no fever or chills Review of Systems Musculoskeletal: Musculoskeletal: Reports back pain PMFSH Past Medical History Medical History EIRS (acute kidney injury) Bacteremia Cirrhosis of liver Diabetes Osteomyelitis Pyelonephritis Sepsis Urinary obstruction Family History Family history: reviewed and not pertinent Surgical History Surgical History S/P TIPS (transjugular intrahepatic portosystemic shunt) Social History Social History Household Members: None Housing: Other Housing Other:: hotels Do you presently have visiting nurse or other home services: Yes Alcohol intake: unknown Smoking Status: Smoker, status unknown Tobacco Type: Cigar Smoked in Last 30 Days: No Patient Interested in Nicotine Replacement: No Patient Given Instructions on How to Stop Smoking: No Second Hand Smoke Exposure: No Use of substances other than those prescribed or required for medical reasons: Yes Substance Use Type: Marijuana Substance Use Frequency: Occasionally Last Used Substance: Weeks (ago) Currently Displaying Signs/Symptoms of Drug Intoxication Withdrawal: No Any prior treatment program specific to substance use: No Have you been hit, kicked, punched, or otherwise hurt by someone within the past year? If so, by whom?: No Do you feel safe in your current relationship?: No Current Relationship Is there a partner from a previous relationship who is making you feel unsafe now?: No Are you made to feel afraid or neglected: No Advance Directives: Yes Advance Directives Information Provided: No Advance Directives on File: Yes Advance Directives Date on File: 11/07/20 Do you have thoughts of harming others: None Do you have a plan to hurt others: No Plan Recently lost weight without trying: No Meds Allergies Allergy/AdvReac Type Severity Reaction Status Date / Time tree nut Allergy Dry Mucus Verified 11/07/20 13:12 Membranes Active Medications: Current Medications Generic Name Dose Route Start Last Admin Trade Name Sayda PRN Reason Stop Dose Admin Acetaminophen 650 mg 11/08/20 05:09 Acetaminophen 325 Mg Tablet PO Q6H PRN Pain Carvedilol 6.25 mg 11/08/20 09:00 11/09/20 09:57 Carvedilol 6.25 Mg Tablet PO Not Given BID [facility] Protocol Docusate Sodium 100 mg 11/09/20 01:04 Docusate Sodium 100 Mg Capsule PO DAILY PRN Constipation Folic Acid 1 mg 11/08/20 09:00 11/09/20 09:57 Folic Acid 1 Mg Tablet PO 1 mg DAILY [facility] Administration Furosemide 40 mg 11/08/20 09:00 11/09/20 09:57 Furosemide 40 Mg Tablet PO 40 mg DAILY DANIS Administration Protocol Gabapentin 300 mg 11/08/20 21:00 11/08/20 21:54 Gabapentin 100 Mg Capsule PO Not Given BEDTIME [facility] Heparin Sodium (Porcine) 5,000 unit 11/08/20 07:00 11/09/20 06:11 Heparin Sodium,Porcine 5,000 Unit/Ml Vial SUBCUT 5,000 unit Q12H [facility]ANIS Administration Sodium Chloride 1,000 mls @ 100 mls/hr 11/09/20 01:04 11/09/20 12:04 Ns IVCONT 100 mls/hr .Q10H [facility] Administration Ceftriaxone Sodium 1 gm/ 50 mls @ 100 mls/hr 11/09/20 20:00 Sodium Chloride IV Q24H [facility] Insulin Glargine 15 unit 11/08/20 21:00 11/08/20 21:54 Insulin Glargine,Hum.Rec.Anlog 100 Unit/Ml 10 Ml Vial SUBCUT 15 unit BEDTIME [facility] Administration Insulin Human Lispro 0 unit 11/08/20 07:30 11/09/20 12:03 Insulin Lispro 100 Unit/Ml 3 Ml Vial SUBCUT 2 unit QIDACHS [facility] Administration Protocol Lactulose 30 gm 11/08/20 09:00 11/09/20 14:26 Lactulose 20 Gm/30 Ml Solution PO 30 gm QID [facility] Administration Lidocaine 1 patch 11/08/20 09:00 11/09/20 09:58 Lidocaine 4 % Patch Adh..Patch TRANSDERMA Not Given DAILY [facility] Melatonin 3 mg 11/08/20 05:09 Melatonin 3 Mg Tablet PO BEDTIME PRN Insomnia Morphine Sulfate 7.5 mg 11/08/20 05:09 Morphine Sulfate Immed Release 15 Mg Tablet PO Q4H PRN Pain (Scale Score 4-6) Morphine Sulfate 15 mg 11/08/20 05:09 Morphine Sulfate Immed Release 15 Mg Tablet PO Q4H PRN Pain (Scale Score 7-10) Non-Formulary Medication 1 cap 11/08/20 09:00 Saccharomyces Boulardii [Florastor] PO BID [facility] Ondansetron HCl 4 mg 11/09/20 01:04 Ondansetron Hcl 4 Mg/2 Ml Vial IVPUSH Q8H PRN Nausea and Vomiting Pharmacy Consult 1 each 11/07/20 16:05 Consult Rx Perform Med Rec MISCELLANE ONCE PRN Consult order Pyridoxine HCl 50 mg 11/08/20 09:00 11/09/20 09:56 Pyridoxine Hcl (Vitamin B6) 50 Mg Tablet PO 50 mg DAILY [facility] Administration Rifaximin 550 mg 11/08/20 09:00 11/09/20 09:57 Rifaximin 550 Mg Tablet PO 550 mg BID [facility] Administration Sodium Bicarbonate 650 mg 11/08/20 09:00 11/09/20 09:57 Sodium Bicarbonate 650 Mg Tablet PO 650 mg BID [facility] Administration Sodium Chloride 3 ml 11/09/20 01:04 11/09/20 14:27 0.9 % Sodium Chloride Flush 3 Ml Syringe IVFLUSH Not Given QSHIFT [facility] Thiamine HCl 200 mg 11/08/20 09:00 11/09/20 09:57 Thiamine Hcl 100 Mg Tablet PO 200 mg DAILY [facility] Administration Tizanidine HCl 8 mg 11/08/20 07:00 11/09/20 14:27 Tizanidine Hcl 4 Mg Tablet PO 8 mg Q8H [facility] Administration Trazodone HCl 50 mg 11/08/20 21:00 11/08/20 21:54 Trazodone Hcl 50 Mg Tablet PO Not Given BEDTIME [facility] Vitamin B Complex/Folic Acid 1 cap 11/08/20 09:00 11/09/20 09:56 B Complex W-C No.20/Folic Acid Capsule PO 1 cap DAILY [facility] Administration Home Medications Medication Instructions Recorded Confirmed Last Taken Type B complex with C 20-folic acid 1 cap PO DAILY 11/07/20 11/07/20 Unknown History [Nephrocaps] Saccharomyces boulardii [Florastor] 1 cap PO BID 11/07/20 11/07/20 Unknown History acetaminophen 650 mg PO Q6H PRN 11/07/20 11/07/20 Unknown History carvedilol 1 tab PO BID 11/07/20 11/07/20 Unknown History folic acid 1 tab PO DAILY 11/07/20 11/07/20 Unknown History furosemide 1 tab PO DAILY 11/07/20 11/07/20 Unknown History gabapentin 300 mg PO BEDTIME 11/07/20 11/07/20 Unknown History heparin (porcine) 5,000 unit SUBCUT Q12H 11/07/20 11/07/20 Unknown History insulin glargine [Lantus Solostar 15 unit SUBCUT BEDTIME 11/07/20 11/07/20 Unknown History U-100 Insulin] insulin lispro 0 unit SUBCUT QIDACHS 11/07/20 11/07/20 Unknown History lactulose 30 g PO QID 11/07/20 11/07/20 Unknown History lidocaine [Lidoderm] 1 patch TOPICAL DAILY 11/07/20 11/07/20 Unknown History melatonin 1 tab PO BEDTIME PRN 11/07/20 11/07/20 Unknown History morphine 7.5 mg PO Q4H PRN 11/07/20 11/07/20 Unknown History morphine 15 mg PO Q4H PRN 11/07/20 11/07/20 Unknown History pyridoxine (vitamin B6) 50 mg PO DAILY 11/07/20 11/07/20 Unknown History rifaximin 550 mg PO BID 11/07/20 11/07/20 Unknown History sodium bicarbonate 1 tab PO BID 11/07/20 11/07/20 Unknown History thiamine mononitrate (vit B1) 2 tab PO DAILY 11/07/20 11/07/20 Unknown History [Vitamin B-1 (mononitrate)] tizanidine 8 mg PO Q8H 11/07/20 11/07/20 Unknown History trazodone 50 mg PO BEDTIME 11/07/20 11/07/20 Unknown History Physical Exam Vital Signs: Vital Signs: Last Vital Signs Temp 97.8 F 11/09/20 11:38 Pulse 59 11/09/20 11:38 Resp 20 11/09/20 11:38 BP 140/67 H 11/09/20 11:38 Pulse Ox 99 11/09/20 11:38 Body Mass Index 26.6 Const: General: cooperative HENMT: Head: Yes normal to inspection Mouth: Normal oral and palatal mucosa present Eyes: General: appearance normal, both eyes and all related structures Resp: Effort & Inspection: normal respiratory effort Cardio: Rate: regular rate Rhythm: regular rhythm GI: Palpation (GI): Soft to palpation and nontender Back/Spine/Pelvis: Other: chronic back pain down right leg Results Labs CBC & Chem 7: 11/09/20 06:10 11/09/20 06:10 Labs: Short CBC 11/08/20 11/09/20 Range/Units 19:30 06:10 WBC 3.9 L 4.0 L (4.8-10.8) X10*3/uL Hgb 7.1 L 7.4 L (14.0-18.0) g/dl Hct 19.8 L* 21.8 L (42-52) % Plt Count 132 L 152 L (160-400) X10*3/uL BMP 11/08/20 11/09/20 19:30 06:10 Sodium 132 L 132 L Potassium 4.3 4.6 Chloride 101 100 Carbon Dioxide 19 L 21 L BUN 84 H* 81 H* Creatinine 4.50 H* 4.37 H* Calcium 8.0 L 8.0 L Microbiology Microbiology Results: Microbiology 11/07/20 23:06 Urine clean catch - Clean Catch Midstream Urine Culture - Preliminary Yeast 11/07/20 17:07 Blood - Venous Blood Culture - Preliminary No growth after 24 hours. 11/07/20 16:58 Blood - Venous Blood Culture - Preliminary No growth after 24 hours. Assessment and Plan (1) Hepatic encephalopathy: Problem details: likely cause of confusion,resolved Status: Acute lactulose per plan (2) Cirrhosis of liver: Status: Acute (3) Urinary tract infection: Qualifiers: Hematuria presence: with hematuria Urinary tract infection type: acute cystitis Qualified Code(s): N30.01 - Acute cystitis with hematuria Problem details: no bacterial infection or complaints fungus only found,likely colonizer No recurrent infection likely,fungus urine not warrant treatment at this time Status: Acute Stop Ceftriaxone Observe clinical course
[2020-11-09 16:14] LABS: Glucose, Whole Blood 132 mg/dL (60-115)
--- NOTE | 2020-11-09 16:27 | PM.CNNEP ---
History of Present Illness Reason for Consult Consult date: 11/09/20 Reason for consult: CKD Chief Complaint Chief complaint: Hepatic encephalopathy, uti History of Present Illness Narrative: Asked to see patient to assist in evaluation management patients and being skinny dysfunction. He is a complicated patient with multiple chronic medical problems and this included a osteomyelitis of back infection for which he was on a prolonged course of ABx. Reviewing the records from [facility] EHR he was adm 09/25/20 with severe ERIS Scr 5.5 whereas previously in 10/2019 his Scr was 1.0-1.3, His hosp course was complicated by Obs pyelo requiring PCN tube and ultimately a L ureteral stent ( ? if it still in place)and a short course of HD. His sero w/u of ERIS was unrevealing and hsi Scr never retruned to bsl and he has been left with very adv CKD as reflected by his latest SCr of 4.5 ( [facility] labs). He nevefr had a kidney Bx to make a definitve Dx. He is now adm for AMS and felt to have Hepatic Encephalopathy which has improved now on lactulose. He is frustrated over his adv kidney dis. 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 Review of Systems Review of Systems Constitutional: No Fever, No Chills, No Night Sweats Cardiovascular: No Chest Pain, No SOB Respiratory: No Cough, No Dyspnea Gastrointestinal: No Nausea, No Vomiting, No Diarrhea, No Constipation, No Abdominal pain Genitourinary: No Dysuria, No Hematuria, No Urinary Incontinence, No Flank Pain, No Urinary Flow Changes Musculoskeletal: + joint pain, + Myalgias, No Joint Swelling Skin: No Skin Lesions, No rash Neuro: No Weakness, No Numbness, No Paresthesias Yes all other systems are reviewed and are negative Musculoskeletal: Reports back pain PMFSH Past Medical History Medical History ERIS (acute kidney injury) Bacteremia Cirrhosis of liver Diabetes Osteomyelitis Pyelonephritis Sepsis Urinary obstruction Family History Family history: reviewed and not pertinent Surgical History Surgical History S/P TIPS (transjugular intrahepatic portosystemic shunt) Social History Social History Household Members: None Housing: Other Housing Other:: hotels Do you presently have visiting nurse or other home services: Yes Alcohol intake: unknown Smoking Status: Smoker, status unknown Tobacco Type: Cigar Smoked in Last 30 Days: No Patient Interested in Nicotine Replacement: No Patient Given Instructions on How to Stop Smoking: No Second Hand Smoke Exposure: No Use of substances other than those prescribed or required for medical reasons: Yes Substance Use Type: Marijuana Substance Use Frequency: Occasionally Last Used Substance: Weeks (ago) Currently Displaying Signs/Symptoms of Drug Intoxication Withdrawal: No Any prior treatment program specific to substance use: No Have you been hit, kicked, punched, or otherwise hurt by someone within the past year? If so, by whom?: No Do you feel safe in your current relationship?: No Current Relationship Is there a partner from a previous relationship who is making you feel unsafe now?: No Are you made to feel afraid or neglected: No Advance Directives: Yes Advance Directives Information Provided: No Advance Directives on File: Yes Advance Directives Date on File: 11/07/20 Do you have thoughts of harming others: None Do you have a plan to hurt others: No Plan Recently lost weight without trying: No Meds Allergies Allergy/AdvReac Type Severity Reaction Status Date / Time tree nut Allergy Dry Mucus Verified 11/07/20 13:12 Membranes Active Medications: Current Medications Generic Name Dose Route Start Last Admin Trade Name Freq PRN Reason Stop Dose Admin Acetaminophen 650 mg 11/08/20 05:09 Acetaminophen 325 Mg Tablet PO Q6H PRN Pain Carvedilol 6.25 mg 11/08/20 09:00 11/09/20 09:57 Carvedilol 6.25 Mg Tablet PO Not Given BID [facility] Protocol Docusate Sodium 100 mg 11/09/20 01:04 Docusate Sodium 100 Mg Capsule PO DAILY PRN Constipation Folic Acid 1 mg 11/08/20 09:00 11/09/20 09:57 Folic Acid 1 Mg Tablet PO 1 mg DAILY [facility]ANIS Administration Furosemide 40 mg 11/08/20 09:00 11/09/20 09:57 Furosemide 40 Mg Tablet PO 40 mg DAILY [facility]ANIS Administration Protocol Gabapentin 300 mg 11/08/20 21:00 11/08/20 21:54 Gabapentin 100 Mg Capsule PO Not Given BEDTIME [facility] Heparin Sodium (Porcine) 5,000 unit 11/08/20 07:00 11/09/20 06:11 Heparin Sodium,Porcine 5,000 Unit/Ml Vial SUBCUT 5,000 unit Q12H [facility] Administration Sodium Chloride 1,000 mls @ 100 mls/hr 11/09/20 01:04 11/09/20 12:04 Ns IVCONT 100 mls/hr .Q10H [facility] Administration Insulin Glargine 15 unit 11/08/20 21:00 11/08/20 21:54 Insulin Glargine,Hum.Rec.Anlog 100 Unit/Ml 10 Ml Vial SUBCUT 15 unit BEDTIME [facility] Administration Insulin Human Lispro 0 unit 11/08/20 07:30 11/09/20 16:12 Insulin Lispro 100 Unit/Ml 3 Ml Vial SUBCUT Not Given QIDACHS [facility] Protocol Lactulose 30 gm 11/08/20 09:00 11/09/20 14:26 Lactulose 20 Gm/30 Ml Solution PO 30 gm QID DANIS Administration Lidocaine 1 patch 11/08/20 09:00 11/09/20 09:58 Lidocaine 4 % Patch Adh..Patch TRANSDERMA Not Given DAILY [facility] Melatonin 3 mg 11/08/20 05:09 Melatonin 3 Mg Tablet PO BEDTIME PRN Insomnia Morphine Sulfate 7.5 mg 11/08/20 05:09 Morphine Sulfate Immed Release 15 Mg Tablet PO Q4H PRN Pain (Scale Score 4-6) Morphine Sulfate 15 mg 11/08/20 05:09 Morphine Sulfate Immed Release 15 Mg Tablet PO Q4H PRN Pain (Scale Score 7-10) Non-Formulary Medication 1 cap 11/08/20 09:00 Saccharomyces Boulardii [Florastor] PO BID [facility] Ondansetron HCl 4 mg 11/09/20 01:04 Ondansetron Hcl 4 Mg/2 Ml Vial IVPUSH Q8H PRN Nausea and Vomiting Pharmacy Consult 1 each 11/07/20 16:05 Consult Rx Perform Med Rec MISCELLANE ONCE PRN Consult order Pyridoxine HCl 50 mg 11/08/20 09:00 11/09/20 09:56 Pyridoxine Hcl (Vitamin B6) 50 Mg Tablet PO 50 mg DAILY [facility]ANIS Administration Rifaximin 550 mg 11/08/20 09:00 11/09/20 09:57 Rifaximin 550 Mg Tablet PO 550 mg BID [facility] Administration Sodium Bicarbonate 650 mg 11/08/20 09:00 11/09/20 09:57 Sodium Bicarbonate 650 Mg Tablet PO 650 mg BID [facility] Administration Sodium Chloride 3 ml 11/09/20 01:04 11/09/20 14:27 0.9 % Sodium Chloride Flush 3 Ml Syringe IVFLUSH Not Given QSHIFT [facility] Thiamine HCl 200 mg 11/08/20 09:00 11/09/20 09:57 Thiamine Hcl 100 Mg Tablet PO 200 mg DAILY DANIS Administration Tizanidine HCl 8 mg 11/08/20 07:00 11/09/20 14:27 Tizanidine Hcl 4 Mg Tablet PO 8 mg Q8H [facility] Administration Trazodone HCl 50 mg 11/08/20 21:00 11/08/20 21:54 Trazodone Hcl 50 Mg Tablet PO Not Given BEDTIME [facility] Vitamin B Complex/Folic Acid 1 cap 11/08/20 09:00 11/09/20 09:56 B Complex W-C No.20/Folic Acid Capsule PO 1 cap DAILY [facility] Administration Home Medications Medication Instructions Recorded Confirmed Last Taken Type B complex with C 20-folic acid 1 cap PO DAILY 11/07/20 11/07/20 Unknown History [Nephrocaps] Saccharomyces boulardii [Florastor] 1 cap PO BID 11/07/20 11/07/20 Unknown History acetaminophen 650 mg PO Q6H PRN 11/07/20 11/07/20 Unknown History carvedilol 1 tab PO BID 11/07/20 11/07/20 Unknown History folic acid 1 tab PO DAILY 11/07/20 11/07/20 Unknown History furosemide 1 tab PO DAILY 11/07/20 11/07/20 Unknown History gabapentin 300 mg PO BEDTIME 11/07/20 11/07/20 Unknown History heparin (porcine) 5,000 unit SUBCUT Q12H 11/07/20 11/07/20 Unknown History insulin glargine [Lantus Solostar 15 unit SUBCUT BEDTIME 11/07/20 11/07/20 Unknown History U-100 Insulin] insulin lispro 0 unit SUBCUT QIDACHS 11/07/20 11/07/20 Unknown History lactulose 30 g PO QID 11/07/20 11/07/20 Unknown History lidocaine [Lidoderm] 1 patch TOPICAL DAILY 11/07/20 11/07/20 Unknown History melatonin 1 tab PO BEDTIME PRN 11/07/20 11/07/20 Unknown History morphine 7.5 mg PO Q4H PRN 11/07/20 11/07/20 Unknown History morphine 15 mg PO Q4H PRN 11/07/20 11/07/20 Unknown History pyridoxine (vitamin B6) 50 mg PO DAILY 11/07/20 11/07/20 Unknown History rifaximin 550 mg PO BID 11/07/20 11/07/20 Unknown History sodium bicarbonate 1 tab PO BID 11/07/20 11/07/20 Unknown History thiamine mononitrate (vit B1) 2 tab PO DAILY 11/07/20 11/07/20 Unknown History [Vitamin B-1 (mononitrate)] tizanidine 8 mg PO Q8H 11/07/20 11/07/20 Unknown History trazodone 50 mg PO BEDTIME 11/07/20 11/07/20 Unknown History Physical Exam Vital Signs: Last Vital Signs Temp 97.5 F 11/09/20 15:18 Pulse 75 11/09/20 15:18 Resp 20 11/09/20 15:18 BP 160/80 H 11/09/20 15:18 Pulse Ox 100 11/09/20 15:18 Body Mass Index 26.6 Const General: cooperative, comfortable and no acute distress Orientation/consciousness: patient oriented x3 Limitations: no limitations [facility] Head: Yes normal to inspection Ears: hearing grossly normal bilaterally General nose exam: Normal external nose present Face and sinus: Yes normal facial exam Mouth: Normal oral and palatal mucosa present Eyes General: appearance normal, both eyes and all related structures EOM: EOMs intact bilaterally Neck Neck: Yes normal visual inspection Resp Effort & Inspection: normal respiratory effort Auscultation: clear to auscultation bilaterally Cardio Rate: regular rate Rhythm: regular rhythm Heart sounds: S1 normal heart sound present and S2 normal heart sound present Peripheral pulses: dorsalis pedis present GI Inspection: Yes normal to inspection Palpation (GI): Soft to palpation, nontender, no guarding and not rigid Auscultation: normal bowel sounds Other: Nephrostomy tube present to left flank General: Yes no CVA tenderness Back/Spine/Pelvis Other: chronic back pain down right leg Back: no CVA tenderness Skin General skin exam: no rashes or lesions noted Rashes: no rashes Wounds: no wounds Neuro Other: Chronic RLE weakness secondary to polio as a child General: patient oriented x3, tone normal, moves all extremities and no focal motor deficits Cognition (Neuro): normal cognition Gait exam (Neuro): Normal gait present Extrem General: Yes normal to inspection and Yes no pedal edema Results Lab Results Result Diagrams: 11/09/20 06:10 11/09/20 06:10 Lab results: Chemistry 11/07/20 11/08/20 11/09/20 16:59 19:30 06:10 Sodium 133 L 132 L 132 L Potassium 4.0 4.3 4.6 Carbon Dioxide 18 L 19 L 21 L BUN 87 H* 84 H* 81 H* Creatinine 4.57 H* 4.50 H* 4.37 H* Calcium 8.3 L 8.0 L 8.0 L Hematology 11/07/20 11/08/20 11/09/20 16:59 19:30 06:10 WBC 4.8 3.9 L 4.0 L Hgb 8.3 L 7.1 L 7.4 L Plt Count 149 L 132 L 152 L Urinalysis 11/07/20 23:08 Urine Color STRAW Urine Appearance HAZY Urine pH 5.5 Ur Specific [place] 1.015 Urine Protein 1+ H Urine Glucose (UA) 100 H Urine Ketones NEG Urine Blood 3+ H Urine Nitrite NEG Ur Leukocyte Esterase 3+ H Urine RBC 50-75 H Urine WBC 15-29 H Ur Squamous Epith Cells TRACE Urine Studies 11/08/20 23:28 Urine Creatinine 34.75 Assessment and Plan (1) Hepatic encephalopathy: Problem details: likely cause of confusion,resolved Status: Acute (2) Cirrhosis of liver: Status: Acute (3) Urinary tract infection: Qualifiers: Hematuria presence: with hematuria Urinary tract infection type: acute cystitis Qualified Code(s): N30.01 - Acute cystitis with hematuria Problem details: no bacterial infection or complaints fungus only found,likely colonizer No recurrent infection likely,fungus urine not warrant treatment at this time Status: Acute 1. ERIS on CKD vs prog CKD: it appears that he may indeed have adv CKD and reversibilyty and now with bsl Scr of 4.0-4.5 and the question is why he had this relatively rapid loss of renal fucn fro 10/2019 perhaps its d/t liver cirrhosis and so called Hepatic glomerulosclerosis; IgA whicha can be assoc with cirrhosis; chronic infection assoc prog CKD ( eg secondary amyloid) vs severe ATN related to hsi last [facility] hosp with delayed or no recovery; cont Obs of L kidney despite the stent Ulitmatley he may need a kidney Bx to make a definitve Dx and make sure we are not missing something but he is at risk for bleeding complication given his h/o liver cirrhosis 2. AMS: hepatic encephalopathy 3. Epsidoe of back infection s/p 6 wks ABx 4. Cirrhosis: h/o etoh 5. Eso varices and ques ascites: s/p TIPS 6. Anemia: epo/Fe def ? REC: sero and urins studies and renal U/S; avoid NToxins; need to see if stent is still presnet in L ureter; check PTH/vit D and anemia management as part of CKD managememt
[2020-11-09 18:08] LABS: Iron 117 mcg/dL (45-160); Percent Iron Saturation 63 % (15-50); Total Iron Binding Capacity 186 mcg/dL (228-428); Unsaturated Iron Binding 69 ug/dL
[2020-11-09 19:54] LABS: Glucose, Whole Blood 166 mg/dL (60-115)
[2020-11-09] MEDS: Insulin Glargine,Hum.rec.anlog 100 UNIT/ML 10 ML VIAL 15 UNIT SUBCUT (20:25)
[2020-11-09] MEDS: Gabapentin 100 MG CAPSULE 300 MG PO (20:25)
[2020-11-09] MEDS: carvediloL 6.25 MG TABLET PO (20:25)
[2020-11-10] VITALS (7 sets, daily range): BP systolic 157–187; BP diastolic 74–87; PULSE 77–94; RESP 16–18; TEMP 36.9–37.2; O2SAT 97–99
[2020-11-10 01:41] LABS: Creatinine Urine 24.74 mg/dL; Microalbum/Creatinine Ratio Ur 670.9 ug/mg cr; Total Protein Urine Random 46 mg/dL (<12)
[2020-11-10] MEDS: Heparin Sodium,Porcine 5,000 UNIT/ML VIAL 5000 UNIT SUBCUT ×2 (06:30→19:06)
[2020-11-10] MEDS: 0.9 % Sodium Chloride 1,000 ML 100 ML IVCONT (06:32)
[2020-11-10 06:46] LABS: Hematocrit 22.5 % (42-52); Hemoglobin 7.8 g/dl (14.0-18.0)
[2020-11-10 06:54] LABS: Ammonia 86 umol/L (13-55)
[2020-11-10 07:47] LABS: Anion Gap 16 (12-20); Blood Urea Nitrogen 76 mg/dL (9-16); Carbon Dioxide 19 mmol/L (22-29); Chloride 102 mmol/L (96-108); Creatinine Clr Calc Pharmacy 17.9; Estimated Glomerular Filt Rate 14; Glucose Random 124 mg/dL (60-115); Potassium 4.3 mmol/L (3.3-5.1); Sodium 133 mmol/L (135-145)
[2020-11-10 07:56] LABS: EOS Counted 2 CELLS; EOS QC POS YES; EOS Stain Quality OK YES; WBC, Counted 100 CELLS
[2020-11-10 08:00] LABS: Glucose, Whole Blood 130 mg/dL (60-115)
[2020-11-10] MEDS: carvediloL 6.25 MG TABLET PO ×2 (10:02→20:38)
[2020-11-10] MEDS: Thiamine HCL 100 MG TABLET 200 MG PO (10:02)
[2020-11-10] MEDS: Furosemide 40 MG TABLET PO (10:02)
[2020-11-10] MEDS: Sodium Bicarbonate 650 MG TABLET PO ×2 (10:02→20:38)
[2020-11-10] MEDS: Lactulose 20 GM/30 ML SOLUTION 30 GM PO ×2 (10:02→14:27)
[2020-11-10] MEDS: Pyridoxine HCl (Vitamin B6) 50 MG TABLET PO (10:03)
[2020-11-10] MEDS: rifAXIMin 550 MG TABLET PO ×2 (10:03→20:38)
[2020-11-10] MEDS: 0.9 % Sodium Chloride Flush 3 ML SYRINGE IVFLUSH (10:03)
[2020-11-10] MEDS: Folic Acid 1 MG TABLET PO (10:03)
[2020-11-10 11:33] LABS: Glucose, Whole Blood 149 mg/dL (60-115)
--- NOTE | 2020-11-10 15:18 | HO.PM.IMPN ---
Subjective Subjective Date of Service: 11/10/20 Interval History: Patient awake alert resting in bed does not feel like eating anything, feels mildly nauseous, complain of back pain and right hip pain with ambulation, blood sugars in 130-150 range. ROS General no headache, no dizziness no fever chills. CVS no chest pain, no palpitation. Respiratory no cough, no shortness of breath Gastrointestinal nausea, no vomiting, no abdominal pain, no diarrhea Physical Exam Vital Signs: Vital Signs: Last Vital Signs Temp 98.9 F 11/10/20 11:04 Pulse 94 11/10/20 11:04 Resp 18 11/10/20 11:04 BP 171/76 H 11/10/20 11:04 Pulse Ox 97 11/10/20 11:04 Body Mass Index 26.6 General in bed, no acute distress. Neck supple, no JVD. CVS regular rate rhythm, Respiratory lungs clear to auscultation, no respiratory distress, no wheeze, no rhonchi. Gastrointestinal abdomen soft, nontender, bowel sounds audible, no guarding , no rigidity, no distension, left nephrostomy tube in place. Extremities no edema. Neuro nonfocal , no confusion awake alert x3, speech clear. Skin no rash Objective Data Current Medications Generic Name Dose Route Start Last Admin Trade Name Freq PRN Reason Stop Dose Admin Acetaminophen 650 mg 11/08/20 05:09 Acetaminophen 325 Mg Tablet PO Q6H PRN Pain Carvedilol 6.25 mg 11/08/20 09:00 11/10/20 10:02 Carvedilol 6.25 Mg Tablet PO 6.25 mg BID DANIS Administration Protocol Docusate Sodium 100 mg 11/09/20 01:04 Docusate Sodium 100 Mg Capsule PO DAILY PRN Constipation Folic Acid 1 mg 11/08/20 09:00 11/10/20 10:03 Folic Acid 1 Mg Tablet PO 1 mg DAILY DANIS Administration Furosemide 40 mg 11/08/20 09:00 11/10/20 10:02 Furosemide 40 Mg Tablet PO 40 mg DAILY DANIS Administration Protocol Gabapentin 300 mg 11/08/20 21:00 11/09/20 20:25 Gabapentin 100 Mg Capsule PO 300 mg BEDTIME DANIS Administration Heparin Sodium (Porcine) 5,000 unit 11/08/20 07:00 11/10/20 06:30 Heparin Sodium,Porcine 5,000 Unit/Ml Vial SUBCUT 5,000 unit Q12H DANIS Administration Insulin Glargine 15 unit 11/08/20 21:00 11/09/20 20:25 Insulin Glargine,Hum.Rec.Anlog 100 Unit/Ml 10 Ml Vial SUBCUT 15 unit BEDTIME DANIS Administration Insulin Human Lispro 0 unit 11/08/20 07:30 11/10/20 12:21 Insulin Lispro 100 Unit/Ml 3 Ml Vial SUBCUT Not Given QIDACHS [facility] Protocol Lactulose 30 gm 11/08/20 09:00 11/10/20 14:27 Lactulose 20 Gm/30 Ml Solution PO 30 gm QID DANIS Administration Lidocaine 1 patch 11/08/20 09:00 11/10/20 10:03 Lidocaine 4 % Patch Adh..Patch TRANSDERMA Not Given DAILY [facility] Melatonin 3 mg 11/08/20 05:09 Melatonin 3 Mg Tablet PO BEDTIME PRN Insomnia Morphine Sulfate 7.5 mg 11/08/20 05:09 Morphine Sulfate Immed Release 15 Mg Tablet PO Q4H PRN Pain (Scale Score 4-6) Morphine Sulfate 15 mg 11/08/20 05:09 Morphine Sulfate Immed Release 15 Mg Tablet PO Q4H PRN Pain (Scale Score 7-10) Non-Formulary Medication 1 cap 11/08/20 09:00 Saccharomyces Boulardii [Florastor] PO BID [facility] Ondansetron HCl 4 mg 11/09/20 01:04 Ondansetron Hcl 4 Mg/2 Ml Vial IVPUSH Q8H PRN Nausea and Vomiting Pharmacy Consult 1 each 11/07/20 16:05 Consult Rx Perform Med Rec MISCELLANE ONCE PRN Consult order Pyridoxine HCl 50 mg 11/08/20 09:00 11/10/20 10:03 Pyridoxine Hcl (Vitamin B6) 50 Mg Tablet PO 50 mg DAILY DANIS Administration Rifaximin 550 mg 11/08/20 09:00 11/10/20 10:03 Rifaximin 550 Mg Tablet PO 550 mg BID DANIS Administration Sodium Bicarbonate 650 mg 11/08/20 09:00 11/10/20 10:02 Sodium Bicarbonate 650 Mg Tablet PO 650 mg BID DANIS Administration Sodium Chloride 3 ml 11/09/20 01:04 11/10/20 10:03 0.9 % Sodium Chloride Flush 3 Ml Syringe IVFLUSH 3 ml QSHIFT DANIS Administration Thiamine HCl 200 mg 11/08/20 09:00 11/10/20 10:02 Thiamine Hcl 100 Mg Tablet PO 200 mg DAILY DANIS Administration Tizanidine HCl 8 mg 11/08/20 07:00 11/10/20 13:50 Tizanidine Hcl 4 Mg Tablet PO Not Given Q8H DANIS Trazodone HCl 50 mg 11/08/20 21:00 11/08/20 21:54 Trazodone Hcl 50 Mg Tablet PO Not Given BEDTIME DANIS Vitamin B Complex/Folic Acid 1 cap 11/08/20 09:00 11/10/20 10:03 B Complex W-C No.20/Folic Acid Capsule PO 1 cap DAILY DANIS Administration Labs CBC & Chem 7: 11/10/20 06:06 11/10/20 06:06 Microbiology Microbiology Results: Microbiology 11/07/20 23:06 Urine clean catch - Clean Catch Midstream Urine Culture - Final Lisa tropicalis 11/07/20 17:07 Blood - Venous Blood Culture - Preliminary No growth after 48 hours. 11/07/20 16:58 Blood - Venous Blood Culture - Preliminary No growth after 48 hours. Assessment and Plan (1) Hepatic encephalopathy: Problem details: likely cause of confusion,resolved Status: Acute (2) Cirrhosis of liver: Status: Acute (3) Anemia: Status: Acute (4) Back pain: Status: Acute (5) Right hip pain: Status: Acute (6) Chronic kidney disease: Status: Acute Assessment and Plan: 60 yo with pmhx of liver cirrhosis, recent treatment for osteomyelitis of the lumbar spine status post extensive course of antibiotic, admitted for hepatic encephalopathy # hepatic encephalopathy resolved Patient admitted with confusion and elevated ammonia level , patient treated with lactulose, ammonia level improved from 109 to 86 confusion resolved patient is awake, alert, Will continue lactulose and hold for more than 2-3 bowel movement /day, will DC IV fluid. 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 Patient seen by ID Will discuss final urine culture report likely colonization. # normocytic anemia, hematocrit 22, patient asymptomatic with no lightheadedness dizziness or chest pain, occult stool blood negative Elevated ferritin 1608, normal folic acid and B12, seems chronic anemia hold transfusion. # Chronic kidney disease with baseline creatinine 4-[address] Gabriel, renal ultrasound obtained that showed no obstruction but showed medical renal disease will discuss further Treatment plan including kidney biopsy whether to be done in house or done as outpatient. Patient requests seeing Dr. Gabriel to talk to his sister Elba prior to planning the procedure. Patient has left nephrostomy tube in place, will need outpatient urology follow-up. # liver cirrhosis continue rifaximin and lactulose. # Back pain/right hip pain patient recently underwent treatment for osteomyelitis and diskitis with epidural and paraspinal phlegmon of lumbar spine, patient did not require surgical intervention finish IV ceftriaxone and pencillin on November 04 at [facility], patient offers no complaints of back pain , complaining of right hip pain with ambulation,at present time he is afebrile, no leukocytosis, bone scan showed no evidence of acute disease in back or hips, x-ray of lumbar spine showed degenerative changes in the right hip and spine, no further intervention required. # disposition patient was scheduled for transfer to short-term rehab from acute rehab prior to arrival to [facility] patient seen by Physical therapy and they are recommending short-term rehab upon discharge for of terminal functional gains DVT prophylaxis: Heparin subQ
[2020-11-10 16:34] LABS: Glucose, Whole Blood 140 mg/dL (60-115)
--- NOTE | 2020-11-10 19:15 | P.PNNP_ITS ---
Subjective Subjective Date of Service: 11/10/20 Interval history: Seen and examined. Events noted Physical Exam Vital Signs: Vital Signs: Last Vital Signs Temp 98.9 F 11/10/20 16:00 Pulse 90 11/10/20 16:00 Resp 18 11/10/20 16:00 BP 182/86 H 11/10/20 16:00 Pulse Ox 99 11/10/20 16:00 Body Mass Index 26.6 Const: General: cooperative, comfortable and no acute distress Orientation/consciousness: patient oriented x3 Limitations: no limitations HENMT: Head: Yes normal to inspection Ears: hearing grossly normal bilate rally General nose exam: Normal external nose present Face and sinus: Yes normal facial exam Mouth: Normal oral and palatal mucosa present Eyes: General: appearance normal, both eyes and all related structures EOM: EOMs intact bilaterally Neck: Neck: Yes normal visual inspection Resp: Effort & Inspection: normal respiratory effort Auscultation: clear to auscultation bilaterally Cardio: Rate: regular rate Rhythm: regular rhythm Heart sounds: S1 normal heart sound present and S2 normal heart sound present Peripheral pulses: dorsalis pedis present GI: Inspection: Yes normal to inspection Palpation (GI): Soft to palpation, nontender, no guarding and not rigid Auscultation: normal bowel sounds : Other: Nephrostomy tube present to left flank General: Yes no CVA tenderness Back/Spine/Pelvis: Other: chronic back pain down right leg Back: no CVA tenderness Skin: General skin exam: no rashes or lesions noted Rashes: no rashes Wounds: no wounds Neuro: Other: Chronic RLE weakness secondary to polio as a child General: patient oriented x3, tone normal, moves all extremities and no focal motor deficits Cognition (Neuro): normal cognition Gait exam (Neuro): Normal gait present Extrem: General: Yes normal to inspection and Yes no pedal edema Objective Data Labs CBC & Chem 7: 11/10/20 06:06 11/10/20 06:06 Labs: Laboratory Results - last 24 hr 11/09/20 11/10/20 11/10/20 19:51 00:40 00:40 Hgb Hct Sodium Potassium Chloride Carbon Dioxide Anion Gap BUN Creatinine Estim Creat Clear Calc Estimated GFR POC Glucose 166 H Random Glucose Calcium Ammonia Urine Eosinophils % 2.0 U Random Total Protein 46 H Urine Creatinine 24.74 Urine Microalbumin 166.0 Microalb/Creat Ratio 670.9 11/10/20 11/10/20 11/10/20 06:06 06:06 06:06 Hgb 7.8 L Hct 22.5 L Sodium 133 L Potassium 4.3 Chloride 102 Carbon Dioxide 19 L Anion Gap 16 BUN 76 H Creatinine 4.33 H* Estim Creat Clear Calc 17.9 Estimated GFR 14 POC Glucose Random Glucose 124 H Calcium 8.0 L Ammonia 86 H Urine Eosinophils % U Random Total Protein Urine Creatinine Urine Microalbumin Microalb/Creat Ratio 11/10/20 11/10/20 11/10/20 07:14 11:08 16:27 Hgb Hct Sodium Potassium Chloride Carbon Dioxide Anion Gap BUN Creatinine Estim Creat Clear Calc Estimated GFR POC Glucose 130 H 149 H 140 H Random Glucose Calcium Ammonia Urine Eosinophils % U Random Total Protein Urine Creatinine Urine Microalbumin Microalb/Creat Ratio Microbiology Microbiology Results: Microbiology 11/07/20 23:06 Urine clean catch - Clean Catch Midstream Urine Culture - Final Lisa tropicalis 11/07/20 17:07 Blood - Venous Blood Culture - Preliminary No growth after 48 hours. 11/07/20 16:58 Blood - Venous Blood Culture - Preliminary No growth after 48 hours. Assessment & Plan Assessment and plan (1) Hepatic encephalopathy: Status: Acute (2) Cirrhosis of liver: Status: Acute (3) Urinary tract infection: Status: Acute Assessment and Plan: 1. ERIS on CKD vs prog CKD: it appears that he may indeed have adv CKD and reversibilyty and now with bsl Scr of 4.0-4.5 and the question is why he had this relatively rapid loss of renal fucn fro 10/2019 perhaps its d/t liver cirrhosis and so called Hepatic glomerulosclerosis; or IgA which can be assoc with cirrhosis; or chronic infection assoc prog CKD ( eg secondary amyloid) vs severe ATN related to his last [facility] hosp with delayed or no recovery; cont Obs of L kidney despite the stent Ulitmatley he may need a kidney Bx to make a definitve Dx and make sure we are not missing something but he is at risk for bleeding complication given his h/o liver cirrhosis 2. AMS: hepatic encephalopathy 3. Epsidoe of back infection s/p 6 wks ABx 4. Cirrhosis: h/o etoh 5. Eso varices and ques ascites: s/p TIPS 6. Anemia: epo/Fe def ? U/S reviewed and no hydrobut incr echogenicty c/w CKD REC: sero and urins studies thus far unrevealing; renal U/S reveiwedas noted above; avoid NToxins; need to see if stent is still presnet in L ureter; check PTH/vit D and anemia management as part of CKD managememt Time Spent With Patient Time: Total time spent is greater than 50% in coordination of care (as documented) at patient's floor/unit and/or counseling patient:
[2020-11-10 19:55] LABS: Glucose, Whole Blood 183 mg/dL (60-115)
[2020-11-10] MEDS: Gabapentin 100 MG CAPSULE 300 MG PO (20:38)
[2020-11-10] MEDS: Insulin Lispro 100 UNIT/ML 3 ML VIAL SUBCUT (20:39)
[2020-11-10] MEDS: Insulin Glargine,Hum.rec.anlog 100 UNIT/ML 10 ML VIAL 15 UNIT SUBCUT (20:39)
[2020-11-11] VITALS (7 sets, daily range): BP systolic 153–188; BP diastolic 70–86; PULSE 76–91; RESP 18–20; TEMP 36.4–37.7; O2SAT 94–100
[2020-11-11] MEDS: 0.9 % Sodium Chloride Flush 3 ML SYRINGE IVFLUSH ×3 (00:23→16:30)
[2020-11-11] MEDS: Heparin Sodium,Porcine 5,000 UNIT/ML VIAL 5000 UNIT SUBCUT ×2 (06:05→19:32)
--- NOTE | 2020-11-11 08:47 | MHC.CM.PN ---
str ref's updated c pt eval. pt is preliminarily accepted at [facility] at this time. waiting for patient to be ready for dc to send pt to str. cm to cont. to follow.
[2020-11-11] MEDS: Thiamine HCL 100 MG TABLET 200 MG PO (09:44)
[2020-11-11] MEDS: rifAXIMin 550 MG TABLET PO ×2 (09:44→22:08)
[2020-11-11] MEDS: Sodium Bicarbonate 650 MG TABLET PO ×2 (09:44→22:07)
[2020-11-11] MEDS: Furosemide 40 MG TABLET PO (09:45)
[2020-11-11] MEDS: carvediloL 6.25 MG TABLET PO ×2 (09:45→22:08)
[2020-11-11] MEDS: Folic Acid 1 MG TABLET PO (09:45)
[2020-11-11] MEDS: Pyridoxine HCl (Vitamin B6) 50 MG TABLET PO (09:45)
[2020-11-11 09:49] LABS: Glucose, Whole Blood 152 mg/dL (60-115)
[2020-11-11] MEDS: Lactulose 20 GM/30 ML SOLUTION 30 GM PO ×2 (10:00→17:05)
[2020-11-11] MEDS: Insulin Lispro 100 UNIT/ML 3 ML VIAL SUBCUT ×4 (10:00→22:09)
--- NOTE | 2020-11-11 10:28 | P.CDIC_ITS ---
CDI Concurrent Query Service Date: 11/11/20 Documentation Clarification: Please clarify if you are treating a proba ble/suspected/likely or confirmed: CKD, please specify stage 1 - 5 ESRD Provider Response: Other Other Diagnosis: Chronic kidney disease stage 5 PLEASE DO NOT DELETE/MODIFY EXISTING CONTENT Additional information is needed in order to code to the highest accuracy and appropriate Severity of Illness (SOI). Please clarify the information noted below in your progress notes and discharge summary. Risk Factors/Clinical Indicators/Treatments 60 year old male admitted with Hepatic Encephalopathy, UTI acute cystitis with hematuria, Normocytic Anemia, Cirrhosis Liver, Left nephrostomy tube BUN 87 Creatinine 4.57 Per Nephrology note 11/10/20, ERIS on CKD vs progression CKD CDS: Isa Duckworth RN Contact Number: [phone] Please Review the information above and exercise your independent professional judgment in responding to the query. If you concur, pleas document in the PROGRESS NOTES and DISCHARGE SUMMARY. If you do not agree with the query, please document in the query above. THIS QUERY IS PART OF THE PERMANENT MEDICAL RECORD
[2020-11-11 11:56] LABS: Glucose, Whole Blood 185 mg/dL (60-115)
--- NOTE | 2020-11-11 14:41 | MHC.CM.PN ---
pt is accepted at [facility]. he said he will go tomorrow as he needs to think about it and wants to speak c his ex about it. he is also considering going to [facility] in [place], [place]. additionally, a ref. to [facility] was made per his request. they do not consider him an approp. admit at this time. lastly , pt was requsting to speak c a therapist. all this information was conveyed to hospitalist. cm to cont. to follow.
--- NOTE | 2020-11-11 15:01 | HO.PM.IMPN ---
Subjective Subjective Date of Service: 11/11/20 Interval History: Patient has multiple questions regarding his renal workup, pain management for his back pain, and what rehab he will be going to, also concern about his nephrostomy tube, otherwise offers no acute pain at the present times, no shortness of breath, no nausea, no vomiting tolerating diet. ROS General no headache, no dizziness no fever chills. CVS no chest pain, no palpitation. Respiratory no cough, no shortness of breath. Gastrointestinal no nausea, no vomiting, no abdominal pain. Physical Exam Vital Signs: Vital Signs: Last Vital Signs Temp 97.6 F 11/11/20 11:45 Pulse 76 11/11/20 11:45 Resp 18 11/11/20 11:45 BP 153/74 H 11/11/20 11:45 Pulse Ox 100 11/11/20 11:45 Body Mass Index 26.6 General no acute distress, resting comfortably. Neck supple, no JVD. CVS regular rate rhythm, Respiratory lungs clear to auscultation, no respiratory distress, no wheeze, no rhonchi. Gastrointestinal abdomen soft, nontender, bowel sounds audible, no guarding , no rigidity, left nephrostomy tube in place. Extremities no edema. Neuro nonfocal , no confusion awake alert x3, speech clear. Skin no rash Objective Data Current Medications Generic Name Dose Route Start Last Admin Trade Name Karq PRN Reason Stop Dose Admin Acetaminophen 650 mg 11/08/20 05:09 Acetaminophen 325 Mg Tablet PO Q6H PRN Pain Carvedilol 6.25 mg 11/08/20 09:00 11/11/20 09:45 Carvedilol 6.25 Mg Tablet PO 6.25 mg BID DANIS Administration Protocol Docusate Sodium 100 mg 11/09/20 01:04 Docusate Sodium 100 Mg Capsule PO DAILY PRN Constipation Folic Acid 1 mg 11/08/20 09:00 11/11/20 09:45 Folic Acid 1 Mg Tablet PO 1 mg DAILY DANIS Administration Furosemide 40 mg 11/08/20 09:00 11/11/20 09:45 Furosemide 40 Mg Tablet PO 40 mg DAILY DANIS Administration Protocol Gabapentin 300 mg 11/08/20 21:00 11/10/20 20:38 Gabapentin 100 Mg Capsule PO 300 mg BEDTIME DANIS Administration Heparin Sodium (Porcine) 5,000 unit 11/08/20 07:00 11/11/20 06:05 Heparin Sodium,Porcine 5,000 Unit/Ml Vial SUBCUT 5,000 unit Q12H DANIS Administration Insulin Glargine 15 unit 11/08/20 21:00 11/10/20 20:39 Insulin Glargine,Hum.Rec.Anlog 100 Unit/Ml 10 Ml Vial SUBCUT 15 unit BEDTIME DANIS Administration Insulin Human Lispro 0 unit 11/08/20 07:30 11/11/20 12:47 Insulin Lispro 100 Unit/Ml 3 Ml Vial SUBCUT 2 unit QIDACHS DANIS Administration Protocol Lactulose 30 gm 11/08/20 09:00 11/11/20 13:09 Lactulose 20 Gm/30 Ml Solution PO Not Given QID DANIS Lidocaine 1 patch 11/08/20 09:00 11/11/20 09:47 Lidocaine 4 % Patch Adh..Patch TRANSDERMA Not Given DAILY COUNTS INCLUDE 234 BEDS AT THE [facility] Melatonin 3 mg 11/08/20 05:09 Melatonin 3 Mg Tablet PO BEDTIME PRN Insomnia Morphine Sulfate 7.5 mg 11/08/20 05:09 Morphine Sulfate Immed Release 15 Mg Tablet PO Q4H PRN Pain (Scale Score 4-6) Morphine Sulfate 15 mg 11/08/20 05:09 Morphine Sulfate Immed Release 15 Mg Tablet PO Q4H PRN Pain (Scale Score 7-10) Ondansetron HCl 4 mg 11/09/20 01:04 Ondansetron Hcl 4 Mg/2 Ml Vial IVPUSH Q8H PRN Nausea and Vomiting Pharmacy Consult 1 each 11/07/20 16:05 Consult Rx Perform Med Rec MISCELLANE ONCE PRN Consult order Pyridoxine HCl 50 mg 11/08/20 09:00 11/11/20 09:45 Pyridoxine Hcl (Vitamin B6) 50 Mg Tablet PO 50 mg DAILY DANIS Administration Rifaximin 550 mg 11/08/20 09:00 11/11/20 09:44 Rifaximin 550 Mg Tablet PO 550 mg BID DANIS Administration Sodium Bicarbonate 650 mg 11/08/20 09:00 11/11/20 09:44 Sodium Bicarbonate 650 Mg Tablet PO 650 mg BID DANIS Administration Sodium Chloride 3 ml 11/09/20 01:04 11/11/20 09:46 0.9 % Sodium Chloride Flush 3 Ml Syringe IVFLUSH 3 ml QSHIFT COUNTS INCLUDE 234 BEDS AT THE [facility] Administration Thiamine HCl 200 mg 11/08/20 09:00 11/11/20 09:44 Thiamine Hcl 100 Mg Tablet PO 200 mg DAILY DANIS Administration Trazodone HCl 50 mg 11/08/20 21:00 11/08/20 21:54 Trazodone Hcl 50 Mg Tablet PO Not Given BEDTIME DANIS Vitamin B Complex/Folic Acid 1 cap 11/08/20 09:00 11/11/20 09:45 B Complex W-C No.20/Folic Acid Capsule PO 1 cap DAILY DANIS Administration Labs CBC & Chem 7: 11/10/20 06:06 11/10/20 06:06 Microbiology Microbiology Results: Microbiology 11/07/20 23:06 Urine clean catch - Clean Catch Midstream Urine Culture - Final Lisa tropicalis 11/07/20 17:07 Blood - Venous Blood Culture - Preliminary No growth after 48 hours. 11/07/20 16:58 Blood - Venous Blood Culture - Preliminary No growth after 48 hours. Assessment and Plan (1) Chronic kidney disease: Status: Acute (2) Right hip pain: Status: Acute (3) Back pain: Status: Acute (4) Cirrhosis of liver: Status: Acute (5) Urinary tract infection: Status: Acute (6) Anemia: Status: Acute (7) Hepatic encephalopathy: Status: Acute Assessment and Plan: 60 yo with pmhx of liver cirrhosis, recent treatment for osteomyelitis of the lumbar spine status post extensive course of antibiotic, admitted for hepatic encephalopathy # hepatic encephalopathy resolved Patient awake, alert likely has chronically elevated ammonia level, will continue lactulose, ammonia level improved from 109 to 86 # UTI UA positive 50-75 RBC,+ leukocyte estrace but no bacteria noted, patient with recent history of sepsis due to pyelonephritis, status post left nephrostomy tube placement due to urinary obstruction also required hemodialysis develop secondary bacteremia and osteomyelitis of his spine 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 Seen by ID she recommend no treatment likely colonization. # normocytic anemia, hematocrit 22, patient asymptomatic with no lightheadedness dizziness or chest pain, occult stool blood negative Elevated ferritin 1608, normal folic acid and B12, seems chronic anemia # Chronic kidney disease stage 5 with baseline creatinine 4-[address] Gabriel, renal ultrasound obtained that showed no obstruction but showed medical renal disease Dr. Gabriel recommend outpatient follow-up and workup Patient has left nephrostomy tube in place, will need outpatient urology follow-up. # liver cirrhosis continue rifaximin and lactulose. # Back pain/right hip pain patient recently underwent treatment for osteomyelitis and diskitis with epidural and paraspinal phlegmon of lumbar spine, patient did not require surgical intervention finish IV ceftriaxone and pencillin on November 04 at assisted, patient offers no complaints of back pain , complaining of right hip pain with ambulation,at present time he is afebrile, no leukocytosis, bone scan showed no evidence of acute disease in back or hips, x-ray of lumbar spine showed degenerative changes in the right hip and spine, no further intervention required. Recommend outpatient pain management . # disposition patient was scheduled for transfer to short-term rehab from acute rehab prior to arrival to [facility] patient seen by Physical therapy and they are recommending short-term rehab upon discharge patient seen by outpatient case manager and arrangements are being made for rehab placement will obtain care team consult as per patient request. DVT prophylaxis: Heparin subQ
--- NOTE | 2020-11-11 15:07 | P.PNNP_ITS ---
Subjective Subjective Date of Service: 11/11/20 Interval history: Seen and examined. Events noted Renal U/S reveiwed..echogenic kidneys, no hydro still unclear if he has L uretral stent in plcae still Physical Exam Vital Signs: Vital Signs: Last Vital Signs Temp 97.6 F 11/11/20 11:45 Pulse 76 11/11/20 11:45 Resp 18 11/11/20 11:45 BP 153/74 H 11/11/20 11:45 Pulse Ox 100 11/11/20 11:45 Body Mass Index 26.6 Const: General: cooperative, comfortable and no acute distress Orientation/consciousness: patient oriented x3 Limitations: no limitations HENMT: Head: Yes normal to inspection Ears: hearing grossly normal fiordaliza aterally General nose exam: Normal external nose present Face and sinus: Yes normal facial exam Mouth: Normal oral and palatal mucosa present Eyes: General: appearance normal, both eyes and all related structures EOM: EOMs intact bilaterally Neck: Neck: Yes normal visual inspection Resp: Effort & Inspection: normal respiratory effort Auscultation: clear to auscultation bilaterally Cardio: Rate: regular rate Rhythm: regular rhythm Heart sounds: S1 normal heart sound present and S2 normal heart sound present Peripheral pulses: dorsalis pedis present GI: Inspection: Yes normal to inspection Palpation (GI): Soft to palpation, nontender, no guarding and not rigid Auscultation: normal bowel sounds : Other: Nephrostomy tube present to left flank General: Yes no CVA tenderness Back/Spine/Pelvis: Other: chronic back pain down right leg Back: no CVA tend erness Skin: General skin exam: no rashes or lesions noted Rashes: no rashes Wounds: no wounds Neuro: Other: Chronic RLE weakness secondary to polio as a child General: patient oriented x3, tone normal, moves all extremities and no focal motor deficits Cognition (Neuro): normal cognition Gait exam (Neuro): Normal gait present Extrem: General: Yes normal to inspection and Yes no pedal edema Objective Data Labs CBC & Chem 7: 11/10/20 06:06 11/10/20 06:06 Labs: Laboratory Results - last 24 hr 11/10/20 11/10/20 11/11/20 16:27 19:50 09:43 POC Glucose 140 H 183 H 152 H 11/11/20 11:43 POC Glucose 185 H Microbiology Microbiology Results: Microbiology 11/07/20 23:06 Urine clean catch - Clean Catch Midstream Urine Culture - F inal Lisa tropicalis 11/07/20 17:07 Blood - Venous Blood Culture - Preliminary No growth after 48 hours. 11/07/20 16:58 Blood - Venous Blood Culture - Preliminary No growth after 48 hours. Assessment & Plan Assessment and plan (1) Hepatic encephalopathy: Status: Acute (2) Cirrhosis of liver: Status: Acute (3) Urinary tract infection: Status: Acute Assessment and Plan: 1. ERIS on CKD vs prog CKD: it appears that he may indeed have adv CKD and without reversibilyty and now with bsl Scr of 4.0-4.5 and the question is why he had this relatively rapid loss of renal fucn fro 10/2019 perhaps its d/t liver cirrhosis and so called Hepatic glomerulosclerosis; or IgA which can be assoc with cirrhosis; or chronic infection assoc prog CKD ( eg secondary amyloid) vs severe ATN related to his last [facility] hosp with delayed or no recovery; cont Obs of L kidney despite the stent has been r/o as there is no hydro on u/s Given the U/S revelas incr echogenicity we will not pursue kidney Bx this hosp as this can be reassed as anoutpt to weigh the pros vs cons of doing a Bx 2. AMS: hepatic encephalopathy resolved 3. Epsidoe of back infection s/p 6 wks ABx 4. Cirrhosis: h/o etoh 5. 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 Anemia: epo def U/S reviewed and no hydro but incr echogenicty c/w CKD REC: sero and urins studies thus far unrevealing; renal U/S reveiwed as noted above; no kindye BX at this time; avoid NToxins; consider KUB to look for whether or not ureteral stent is sttill presnet check PTH/vit D and anemia management as part of CKD managememt; procrit ordered Time Spent With Patient Time: Total time spent is greater than 50% in coordination of care (as documented) at patient's floor/unit and/or counseling patient:
[2020-11-11 16:07] LABS: Calcium (PTHI) 8.5 mg/dL (8.6-10.3); PTHI 65 pg/mL (14-64)
[2020-11-11 16:37] LABS: Glucose, Whole Blood 163 mg/dL (60-115)
[2020-11-11 17:41] LABS: IgA 651 mg/dL (47-310); IgG 1820 mg/dL (600-1640); IgM 75 mg/dL (50-300)
[2020-11-11 18:27] LABS: Kappa Light Chain, Free Serum 200.7 mg/L (3.3-19.4); Kappa/Lambda Lt Ch Free Ratio 1.45 (0.26-1.65); Lambda Light Chain, Free Serum 138.2 mg/L (5.7-26.3)
[2020-11-11 21:45] LABS: Glucose, Whole Blood 418 mg/dL (60-115)
[2020-11-11] MEDS: Insulin Glargine,Hum.rec.anlog 100 UNIT/ML 10 ML VIAL 15 UNIT SUBCUT (22:08)
[2020-11-11] MEDS: Gabapentin 100 MG CAPSULE 300 MG PO (22:08)
--- NOTE | 2020-11-11 22:24 | MHC.CARE ---
CARE team met with pt due to pt requesting to speak with someone. T/W spoke with Pt at length about triggers and challenges he faces. T/W offered active listening and support. Pt reports he will be d/c tomorrow.
[2020-11-12] VITALS: BP 146/65; PULSE 83; RESP 20; TEMP 36.9; O2SAT 99
[2020-11-12] MEDS: 0.9 % Sodium Chloride Flush 3 ML SYRINGE IVFLUSH ×2 (01:11→08:55)
[2020-11-12 04:00] VITALS: BP 150/75; PULSE 84; RESP 20; TEMP 36.9; O2SAT 100
[2020-11-12] MEDS: Heparin Sodium,Porcine 5,000 UNIT/ML VIAL 5000 UNIT SUBCUT (06:05)
[2020-11-12 07:50] VITALS: BP 161/81; PULSE 84; RESP 20; TEMP 36.6; O2SAT 98
[2020-11-12 07:59] LABS: Glucose, Whole Blood 142 mg/dL (60-115)
[2020-11-12] MEDS: Furosemide 40 MG TABLET PO (08:55)
[2020-11-12] MEDS: rifAXIMin 550 MG TABLET PO (08:55)
[2020-11-12] MEDS: carvediloL 6.25 MG TABLET PO (08:55)
[2020-11-12] MEDS: Sodium Bicarbonate 650 MG TABLET PO (08:55)
[2020-11-12] MEDS: Thiamine HCL 100 MG TABLET 200 MG PO (08:55)
[2020-11-12] MEDS: Pyridoxine HCl (Vitamin B6) 50 MG TABLET PO (08:55)
[2020-11-12] MEDS: Folic Acid 1 MG TABLET PO (08:55)
[2020-11-12] MEDS: Acetaminophen 325 MG TABLET 650 MG PO (09:01)
[2020-11-12 11:36] LABS: Glucose, Whole Blood 206 mg/dL (60-115)
--- NOTE | 2020-11-12 12:10 | PM.PNNEP ---
Subjective Subjective Date of Service: 11/12/20 Interval history: Seenand examiend.Events noted Physical Exam Vital Signs: Vital Signs: Last Vital Signs Temp 97.8 F 11/12/20 07:50 Pulse 84 11/12/20 07:50 Resp 20 11/12/20 07:50 BP 161/81 H 11/12/20 07:50 Pulse Ox 98 11/12/20 07:50 Body Mass Index 26.6 Const: General: cooperative, comfortable and no acute distress Orientation/consciousness: patient oriented x3 Limitations: no limitations HENMT: Head: Yes normal to inspection Ears: hearing grossly normal bilaterally General nose exam: Normal external nose present Face and sinus: Yes normal facial exam Mouth: Normal oral and palatal mucosa present Eyes: General: appearance normal, both eyes and all related structures EOM: EOMs intact bilaterally Neck: Neck: Yes normal visual inspection Resp: Effort & Inspection: normal respiratory effort Auscultation: clear to auscultation bilaterally Cardio: Rate: regular rate Rhythm: regular rhythm Heart sounds: S1 normal heart sound present and S2 normal heart sound present Peripheral pulses: dorsalis pedis present GI: Inspection: Yes normal to inspection Palpation (GI): Soft to palpation, nontender, no guarding and not rigid Auscultation: normal bowel sounds : Other: Nephrostomy tube present to left flank General: Yes no CVA tenderness Back/Spine/Pelvis: Other: chronic back pain down right leg Back: no CVA tenderness Skin: General skin exam: no rashes or lesions noted Rashes: no rashes Wounds: no wounds Neuro: Other: Chronic RLE weakness secondary to polio as a child General: patient oriented x3, tone normal, moves all extremities and no focal motor deficits Cognition (Neuro): normal cognition Gait exam (Neuro): Normal gait present Extrem: General: Yes normal to inspection and Yes no pedal edema Objective Data Labs CBC & Chem 7: 11/10/20 06:06 11/10/20 06:06 Labs: Laboratory Results - last 24 hr 11/09/20 11/09/20 11/09/20 17:30 17:30 17:30 POC Glucose PTH Intact 65 H Calcium (PTH Intact) 8.5 L IgG Total 1820 H IgA Total 651 H IgM 75 YENNI Interpretation SEE NOTE Free [place] LC, Quant 200.7 H Free Lambda LC, Quant 138.2 H Free [place]/Lambda Ratio 1.45 11/11/20 11/11/20 11/12/20 16:32 21:41 07:49 POC Glucose 163 H 418 H* 142 H PTH Intact Calcium (PTH Intact) IgG Total IgA Total IgM YENNI Interpretation Free [place]illi[place] LC, Quant Free Lambda LC, Quant Free [place]/Lambda Ratio 11/12/20 11:33 POC Glucose 206 H PTH Intact Calcium (PTH Intact) IgG Total IgA Total IgM YENNI Interpretation Free [place] LC, Quant Free Lambda LC, Quant Free [place]/Lambda Ratio Microbiology Microbiology Results: Microbiology 11/07/20 23:06 Urine clean catch - Clean Catch Midstream Urine Culture - Final Lisa tropicalis 11/07/20 17:07 Blood - Venous Blood Culture - Preliminary No growth after 48 hours. 11/07/20 16:58 Blood - Venous Blood Culture - Preliminary No growth after 48 hours. Assessment & Plan Assessment and plan (1) Hepatic encephalopathy: Status: Acute (2) Cirrhosis of liver: Status: Acute (3) Urinary tract infection: Status: Acute Assessment and Plan: 1. ERIS on CKD vs prog CKD: it appears that he may indeed have adv CKD and without reversibilyty and now with bsl Scr of 4.0-4.5 and the question is why he had this relatively rapid loss of renal fucn fro 10/2019 perhaps its d/t liver cirrhosis and so called Hepatic glomerulosclerosis; or IgA which can be assoc with cirrhosis; or chronic infection assoc prog CKD ( eg secondary amyloid) vs severe ATN related to his last [facility] hosp with delayed or no recovery; cont Obs of L kidney despite the stent has been r/o as there is no hydro on u/s Given the U/S revelas incr echogenicity we will not pursue kidney Bx this hosp as this can be reassed as an outpt to weigh the pros vs cons of doing a Bx Case d/w Hosp doc, Dr Perry (PCP) and Dr Portillo who know him well. Plan is for Dr Portillo to eval the L PCN tube func and seeif it can be capped off and alos will do kidney Bx as outpt; Dr Galeas os also looking at stenting the TIPS wich has become stenotic and was preiously planed per Dr Portillo with his d/w Dr Rizzo ( GI doc at [facility]) 2. AMS: hepatic encephalopathy resolved 3. Epsidoe of back infection s/p 6 wks ABx 4. Cirrhosis: h/o etoh 5. Eso varices and ques ascites: s/p TIPS in 2015..per PT its clotted off and was being eval by Dr Portillo as an outpt to possible to declot but given elevated ammonia level it may cause worse encephalpathy..he is goig to d/w his GI doc and Dr Portillo as an outpt 6. Anemia: epo def U/S reviewed and no hydro but incr echogenicty c/w CKD REC: no kindye BX at this time but will arrange as an outpt; avoid NToxins; consider KUB to look for whether or not ureteral stent is sttill presnet check PTH/vit D and anemia management as part of CKD managememt; procrit ordered Time Spent With Patient Time: Total time spent is greater than 50% in coordination of care (as documented) at patient's floor/unit and/or counseling patient:
[2020-11-12] MEDS: Insulin Lispro 100 UNIT/ML 3 ML VIAL SUBCUT (12:31)
--- NOTE | 2020-11-12 13:08 | PM.DS ---
DS: Providers Provider Date of Service: 11/12/20 Date of admission: 11/08/20 21:11 Primary care physician: Quique Perry MD, DO Consults: 11/09/20 01:04 Consult to Nephrology Routine Consulting Provider: [facility] Reason for consultation: ERIS Has provider been notified: No 11/09/20 14:06 Consult to Infectious Diseases Routine Consulting Provider: Vanessa Wills Reason for consultation: yeast in urine s/p left nephrostomy tube Has provider been notified: No 11/11/20 15:30 Consult to Care Team Routine Comment: Reason for consultation: multiple concerns frustrated with multiple issues wants councilling DS: Diagnosis Discharge Diagnosis (1) Hepatic encephalopathy: Status: Acute (2) Cirrhosis of liver: Status: Acute (3) Urinary tract infection: Status: Acute DS: Medications Discharge Medications Home Medications: Home Medications Medication Instructions Recorded Confirmed B complex with C 20-folic acid 1 cap PO DAILY 11/07/20 11/07/20 Lantus Solostar U-100 Insulin 15 unit SUBCUT BEDTIME 11/07/20 11/07/20 Saccharomyces boulardii [Florastor] 1 cap PO BID 11/07/20 11/07/20 carvedilol 1 tab PO BID 11/07/20 11/07/20 folic acid 1 tab PO DAILY 11/07/20 11/07/20 furosemide 1 tab PO DAILY 11/07/20 11/07/20 gabapentin 300 mg PO BEDTIME 11/07/20 11/07/20 heparin (porcine) 5,000 unit SUBCUT Q12H 11/07/20 11/07/20 insulin lispro 0 unit SUBCUT QIDACHS 11/07/20 11/07/20 lactulose 30 g PO QID 11/07/20 11/07/20 lidocaine [Lidoderm] 1 patch TOPICAL DAILY 11/07/20 11/07/20 melatonin 1 tab PO BEDTIME PRN 11/07/20 11/07/20 morphine 7.5 mg PO Q4H PRN 11/07/20 11/07/20 morphine 15 mg PO Q4H PRN 11/07/20 11/07/20 pyridoxine (vitamin B6) 50 mg PO DAILY 11/07/20 11/07/20 rifaximin 550 mg PO BID 11/07/20 11/07/20 sodium bicarbonate 1 tab PO BID 11/07/20 11/07/20 thiamine mononitrate (vit B1) 2 tab PO DAILY 11/07/20 11/07/20 [Vitamin B-1 (mononitrate)] trazodone 50 mg PO BEDTIME 11/07/20 11/07/20 Previous Rx's Medication Instructions Recorded acetaminophen 650 mg PO Q8H PRN #0 tab 11/12/20 DS: Summary Hospital Course Hospital Course: Hospital course Chief Complaint: back pain, altered mental status This is a 60-year-old male with past medical history of liver cirrhosis, diabetes, osteomyelitis of the back, pyelonephritis, status post TIPS, ERIS and bacteremia who was recently discharged from [facility] after being managed for osteomyelitis of the spine and was on an extensive course of antibiotics at the detention sent from the detention for complaints of back pain as well as altered mentation. Patient is sleeping, lethargic, waxing and waning and therefore history was obtained mostly from ED physician. It appears the patient was recently treated with an extensive course of antibiotic for osteomyelitis of vertebral spine, and was sent to detention. Patient was complaining of back pain at the detention and therefore was sent to the ED for concern of recurrent osteomyelitis. According to his girlfriend patient is also more altered and lethargic. According to documentation patient had a hospitalization from August 21 to October 17 at [facility] then [facility] [place] [facility] [place] with pyelonephritis and urinary obstruction requiring hemodialysis and percutaneous nephrostomy tube, then developed secondary bacteremia. MRI of the spine done on September 21 showed osteomyelitis and diskitis with epidural and paraspinal phlegmon at L1 and L2-L4 and L5. Patient did not require any surgical intervention. Patient finished IV ceftriaxone and penicillin on November 04 for osteomyelitis treatment at the detention. Patient hemodynamically stable with no significant abnormal vitals Labs are significant for WBC count of 3.9, hemoglobin of 7.1 with a negative stool occult blood, hematocrit of 19.8, platelet count of 132, sodium of 132, BUN of 84 with a creatinine of 4.5, ammonia of 106 worsened to 109 and repeat UA is positive for leukocyte Estrace and WBC Past medical history Chronic kidney disease Bacteremia Cirrhosis of liver Diabetes Osteomyelitis Pyelonephritis Sepsis Urinary obstruction 60 yo with pmhx of liver cirrhosis, recent treatment for osteomyelitis of the lumbar spine status post extensive course of antibiotic, admitted for hepatic encephalopathy # hepatic encephalopathy resolved, ammonia level improved from 109-86 likely has chronically elevated ammonia with underlying history of tips recommend to continue lactulose. # UTI patient with recent history of sepsis due to pyelonephritis, status post left nephrostomy tube placement due to urinary obstruction also required hemodialysis develop secondary bacteremia and osteomyelitis of his spine status post fci IV antibiotic treatment. On this admission UA positive 50-75 RBC,+ leukocyte estrace but no bacteria noted,final urine culture grew Lisa tropicalis > 100,000 ,BC x2 showed no growth. Seen by ID she recommend no treatment since likely colonization. # normocytic anemia, hematocrit 22, patient asymptomatic with no lightheadedness dizziness or chest pain, occult stool blood negative, Elevated ferritin 1608, normal folic acid and B12, seems chronic anemia. # Chronic kidney disease stage 5 with baseline creatinine 4-[address] Gabriel, renal ultrasound obtained that showed no obstruction but showed medical renal disease Dr. Gabriel recommend outpatient follow-up and workup by Dr. Portillo, Patient has left nephrostomy tube in place. # liver cirrhosis continue rifaximin and lactulose. # Back pain/right hip pain patient recently underwent treatment for osteomyelitis and diskitis with epidural and paraspinal phlegmon of lumbar spine, patient did not require surgical intervention finish IV ceftriaxone and pencillin on November 04 at detention, patient complain of right hip pain with ambulation,at present time he is afebrile, no leukocytosis, bone scan showed no evidence of acute disease in back or hips, x-ray of lumbar spine showed degenerative changes in the right hip and spine, no further intervention required. Recommend outpatient pain management . Time Spent with Patient Time attestation: Total time spent providing and/or coordinating discharge services: Discharge coordination time: Greater than 30 minutes Physical Exam Vital Signs: Vital Signs: Last Vital Signs Temp 97.8 F 11/12/20 07:50 Pulse 84 11/12/20 07:50 Resp 20 11/12/20 07:50 BP 161/81 H 11/12/20 07:50 Pulse Ox 98 11/12/20 07:50 Body Mass Index 26.6 General no acute distress, resting comfortably. Neck supple, no JVD. CVS regular rate rhythm, Respiratory lungs clear to auscultation, no respiratory distress, no wheeze, no rhonchi. Gastrointestinal abdomen soft, nontender, bowel sounds audible, no guarding , no rigidity, left nephrostomy tube in place. Extremities no edema. Neuro nonfocal , no confusion awake alert x3, speech clear. Skin no rash DS: Data Data Completed and Pending Labs on day of discharge: Laboratory Results - last 24 hr 11/09/20 11/09/20 11/09/20 17:30 17:30 17:30 POC Glucose PTH Intact 65 H Calcium (PTH Intact) 8.5 L IgG Total 1820 H IgA Total 651 H IgM 75 YENNI Interpretation SEE NOTE Free [place] LC, Quant 200.7 H Free Lambda LC, Quant 138.2 H Free [place]/Lambda Ratio 1.45 11/11/20 11/11/20 11/12/20 16:32 21:41 07:49 POC Glucose 163 H 418 H* 142 H PTH Intact Calcium (PTH Intact) IgG Total IgA Total IgM YENNI Interpretation Free [place] LC, Quant Free Lambda LC, Quant Free [place]/Lambda Ratio 11/12/20 11:33 POC Glucose 206 H PTH Intact Calcium (PTH Intact) IgG Total IgA Total IgM YENNI Interpretation Free [place] LC, Quant Free Lambda LC, Quant Free [place]/Lambda Ratio Preliminary micro results at discharge 11/07/20 17:07 Blood Culture - Preliminary Blood - Venous No growth after 48 hours. 11/07/20 16:58 Blood Culture - Preliminary Blood - Venous No growth after 48 hours. Discharge Plan Discharge Patient Disposition: er [facility] Referrals: Quique Perry MD, DO [Primary Care Provider] - Discharge Medications: Continued furosemide 40 mg tablet 1 tab PO DAILY RF: 0 carvedilol 6.25 mg tablet 1 tab PO BID RF: 0 melatonin 3 mg tablet 1 tab PO BEDTIME PRN (Reason: Insomnia) RF: 0 sodium bicarbonate 650 mg tablet 1 tab PO BID RF: 0 folic acid 1 mg tablet 1 tab PO DAILY RF: 0 insulin lispro 100 unit/mL insulin pen 0 unit subcut QIDACHS RF: 0 Saccharomyces boulardii [Florastor] 250 mg capsule 1 cap PO BID RF: 0 lactulose 10 gram/15 mL solution 30 g PO QID RF: 0 Lantus Solostar U-100 Insulin 100 unit/mL (3 mL) insulin pen 15 unit subcut BEDTIME RF: 0 thiamine mononitrate (vit B1) [Vitamin B-1 (mononitrate)] 100 mg tablet 2 tab PO DAILY RF: 0 lidocaine [Lidoderm] 5 % Adhesive Patch,Medicated 1 patch TOPICAL DAILY RF: 0 pyridoxine (vitamin B6) 50 mg Tablet 50 mg PO DAILY RF: 0 gabapentin 100 mg Capsule 300 mg PO BEDTIME RF: 0 heparin (porcine) 5,000 unit/mL Solution 5,000 unit SUBCUT Q12H RF: 0 rifaximin 550 mg Tablet 550 mg PO BID RF: 0 B complex with C 20-folic acid 1 mg Capsule 1 cap PO DAILY RF: 0 trazodone 50 mg Tablet 50 mg PO BEDTIME RF: 0 morphine 15 mg Tablet 15 mg PO Q4H PRN (Reason: Pain (Scale Score 7-10)) RF: 0 morphine 15 mg Tablet 7.5 mg PO Q4H PRN (Reason: Pain (Scale Score 4-6)) RF: 0 Changed acetaminophen 325 mg Tablet 650 mg PO Q8H PRN (Reason: Pain) Qty: 0 RF: 0 Discontinued tizanidine 4 mg Tablet 8 mg PO Q8H RF: 0 Discharge Orders: Discharge Order (Routine); Ordered 11/12/20 Ordered By: Katrin Ryan Diet: diabetic diet and low salt diet Activity on Discharge: As tolerated Stand Alone Forms: Patient Portal Discharge page Care Plan Goals: Discharge to rehab for optimal functional gains Health Concerns: Herpetic encephalopathy resolved/no UTI continue all baseline medication/left nephrostomy tube/chronic kidney disease/status post tips procedure Plan of Treatment: Outpatient follow-up with and follow-up with primary care physician.
[2020-11-12 13:54] LABS: COVID-19 Test Negative (Negative); IDNOW Serial# 9DD0AD1C
--- NOTE | 2020-11-12 14:20 | MHC.CM.PN ---
Patient will be discharged today to [facility] at 5[facility] BLS transport. patient and nurse are aware.
[2020-11-12 15:18] VITALS: BP 154/77; PULSE 79; RESP 18; TEMP 36.9; O2SAT 100
[2020-11-12 16:05] LABS: Glucose, Whole Blood 131 mg/dL (60-115)
[2020-11-13 08:04] LABS: HBS Num1 0.96 mIU/mL (0-7.99); HBc Num1 0.16 S/CO (0.00-0.79); Hepatitis B Core Antibody Nonreactive (Nonreactive); ~Hepatitis B Surface Antibody NONREACTIVE (Nonreactive)
[2020-11-13 08:25] LABS: HBsAGNum1 0.14 S/CO (0.00-0.99); Hepatitis B Surface Antigen Negative (Negative); ~Hepatitis C Antibody Nonreactive (Nonreactive)
== END 2020-11-12 17:26 | disposition skilled nursing facility (03) | DRG 442 ==
LOC: HO.ED 11-08 20:25 → HO.EDOVER 11-08 21:18 → HO.IMC 11-08 22:08
PROVIDERS: Internal Medicine Nephrology; Physician Assistant; Admitting Provider Internal Medicine; Emergency Provider Emergency Medicine; PCP Internal Medicine; Visit Provider Hospitalist
DX: K72.90 Hepatic failure, unspecified without coma (principal); N17.9 Acute kidney failure, unspecified; N18.5 Chronic kidney disease, stage 5; K74.60 Unspecified cirrhosis of liver; E11.22 Type 2 diabetes mellitus with diabetic chronic kidney disease; D63.1 Anemia in chronic kidney disease; M54.9 Dorsalgia, unspecified; M25.551 Pain in right hip; Z20.822 Contact with and (suspected) exposure to COVID-19; Z79.4 Long term (current) use of insulin; Z79.899 Other long term (current) drug therapy
CPT/HCPCS: 36415; 72100; 73502; 76775; 78315; 80048; 80076; 81001; 81003; 82043; 82140; 82272; 82607; 82728; 82746; 82784; 82947; 83520; 83540; 83605; 83690; 83735; 83970; 84156; 84300; 85014; 85018; 85025; 85610; 85652; 85730; 86140; 86334; 86704; 86706; 86803; 87040; 87086; 87088; 87340; 87635; 89190; 97162; 99284; A9503; J0696; J0885